=== PATIENT | female | born 1985 | race Caucasian/White ===

== ENCOUNTER 2022-09-09 12:59 | Inpatient (IN) ==
[2022-09-09 13:56] LABS: Appearance Urine Clear (Clear); Bacteria Urine Automated 1+ (Negative); Bilirubin Urine Negative (Negative); Blood Urine Negative (Negative); Color Urine Yellow; Epithelial Cell Urine Auto >30 /lpf (0-5); Glucose Urine UA Negative (Negative); Ketones Urine Trace (Negative); Leukocyte Esterase Urine Trace (Negative); Nitrite Urine Negative (Negative); Protein Urine Negative (Negative); Specific Gravity Urine 1.017 (1.000-1.030); Urobilinogen Urine Negative (Negative); pH Urine 6.5 (4.5-7.5)
[2022-09-09 14:21] LABS: Amphetamines+Metham, Urine Neg (Neg); Barbiturates, Urine Neg (Neg); Benzodiazepine, Urine Neg (Neg); Cocaine, Urine Neg (Neg); MDMA (Ecstacy), Urine Neg (Neg); Methadone, Urine Neg (Neg); Opiate, Urine Neg (Neg); Phencyclidine, Urine Neg (Neg)
[2022-09-09 14:40] LABS: Basophils # (auto) 0.05 K/uL (0-0.2); Basophils % (auto) 0.6 %; Eosinophils # (auto) 0.05 K/uL (0-0.50); Eosinophils % (auto) 0.6 %; Hematocrit (blood only) 41.4 % (34.1-44.9); Hemoglobin 14.5 g/dl (12.0-16.0); Immature Granulocytes # (auto) 0.02 K/uL (0.00-0.02); Immature Granulocytes % (auto) 0.2 %; Lymphocytes % (auto) 27.3 %; Mean Corpuscular Hemoglobin 30.1 pg (25.0-34.0); Mean Corpuscular Volume 85.9 fL (80.0-100.0); Mean Platelet Volume 10.6 fL (9.4-12.3); Monocytes # (auto) 0.55 K/uL (0.24-0.82); Monocytes % (auto) 6.5 %; Neutrophils # (auto) 5.44 K/uL (1.4-6.5); Neutrophils % (auto) 64.8 %; Platelet Count 347 K/uL (130-400); RDW Standard Deviation 37.6 fL (36.4-46.3); Red Blood Count 4.82 M/uL (3.93-5.22); White Blood Count 8.41 K/ul (4.8-10.8)
[2022-09-09 15:00] LABS: Alanine Aminotransferase 12 U/L (7-52); Albumin Globulin Ratio 1.8 (0.9-2); Albumin Level 4.6 gm/dl (3.4-5.0); Alkaline Phosphatase 97 U/L (34-104); Anion Gap 9 (3-11); Aspartate Aminotransferase 14 U/L (13-39); Bilirubin,Total 0.4 mg/dl (0.2-1.0); Blood Urea Nitrogen 9 mg/dl (6-23); Calcium 9.2 mg/dl (8.5-10.1); Carbon Dioxide 24 mmol/L (21-32); Chloride 105 mmol/L (98-107); Est GFR (African American) 131.6 ml/min; Est GFR (Non-African American) 113.6 ml/min; Globulin 2.5 gm/dl (2.5-4.0); Glucose 95 mg/dl (70-99(Fasting)); Potassium 3.9 mmol/L (3.5-5.1); Sodium 138 mmol/L (136-145); Total Protein 7.1 gm/dl (6.0-8.3)
[2022-09-09 15:01] LABS: Acetaminophen < 3 ug/ml (10-30); Salicylate < 3.0 mg/dl (3.0-30)
[2022-09-09] MEDS ORDERED: ALUMINUM/MAGNESIUM SUSP 30 ML UDC PO PRN (18:22)
[2022-09-09] MEDS ORDERED: MAGNESIUM HYDROXIDE SUSP 30 ML UDC PO PRN (18:22)
[2022-09-09] MEDS ORDERED: SODIUM CHLORIDE 0.65% NA SOLN 45 ML (OCEAN) PRN (18:22)
[2022-09-09] MEDS ORDERED: BISMUTH SUBSALICYLATE LIQD 236 ML PO PRN (18:22)
--- NOTE | 2022-09-09 18:38 | Emergency Department Note ---
Impression & Plan Mood disorder ED Provider Note CHIEF COMPLAINT: Mental health evaluation HISTORY OF PRESENT ILLNESS: This 36-year-old female patient presents to the emergency department with complaints of racing thoughts, difficulty sleeping and intermittent suicidal ideation. The patient is currently residing in a homeless [facility] and states she does have a past history of drug abuse. She has been clean recently but has relapsed on several occasions. He does have an appointment with [facility] coming up but is concerned about isabela. Patient states she has been off of her antidepressants, but she believes this triggers her suicidal ideation for which she was seen here yesterday. She is afraid to restart her antidepressants because she believes this triggers her isabela. Says her seventh visit to the emergency department this month and she believes that she needs help currently. REVIEW OF SYSTEMS: A review of systems was performed with positives and pertinent negatives listed in the history of present illness. 10 systems were reviewed and are otherwise negative. ALLERGIES: see below MEDICATIONS: see below PMH: see below SOCIAL HISTORY: see below DDx: Mood disorder, infection, hypoglycemia, electrolyte abnormalities, cardiac sources, intracerebral event, toxicologic, trauma, neurologic, as well as other pathologies. PHYSICAL EXAM: Vital signs reviewed. General: Well-appearing 36 yo female, in no significant distress. HEENT: No scleral icterus, PERRLA, neck supple. Atraumatic. Cardiovascular: Regular rate and rhythm, no extra sounds. Pulmonary: Clear to auscultation bilaterally, normal work of breathing. Abdomen: Soft, nontender, nondistended, positive bowel sounds. Musculoskeletal: Atraumatic, no peripheral edema. Neurologic: Patient awake alert and oriented x 3 Psych: Negative SI, negative HI Skin: Warm, dry, no rash EMERGENCY DEPARTMENT COURSE/MDM: This patient was evaluated and appeared to be in no significant distress. He was medically cleared and evaluated by the psychiatric wrapper caser. She was referred to [facility] for inpatient psychiatric care due to her worsening manic episodes and periodic suicidal ideation. She is requesting inpatient treatment on a voluntary basis. She has been accepted to our facility. DISPOSITION: Admission Past Med/Surg History Medical History Abnormal Pap smear of cervix Anxiety Bipolar disorder No pertinent family history PTSD (post-traumatic stress disorder) Surgical History H/O cervical biopsy H/O wisdom tooth extraction History of section No pertinent past surgical history Family History Mother Breast cancer Denies family history of Ovarian cancer Prostate cancer Myocardial infarction Colorectal cancer Social History Smoking Status: Current every day smoker Tobacco Type: Cigarettes Second Hand Exposure: No; Hx Alcohol Use: No Hx Substance Use: No Preferred Language: Luxembourgish Visual Impairment: No Limitations Hearing Ability: Normal marital status: Single Current Living Situation: Homeless Current Living Situation Comment: Currently living in [facility]ci current occupational status: disabled How many Children do You have: 2 Feels Safe at Home: Yes Childhood Exposure to Second-Hand Smoke: No Diet Comment: Organic Diet Dental Care, Regularly: No Physical Activity Frequency: 3-4 Times per Week Seatbelt Use: always Sunscreen Use: Yes Gender Identity: Female Allergies Allergies Allergy/AdvReac Type Severity Reaction Status Date / Time risperidone Allergy Severe FULL BODY Verified 08/01/22 11:04 "TIC" Home Meds Home Medications Medication Instructions Recorded Confirmed oxcarbazepine 150 mg tablet 150 mg PO BID 09/08/22 09/08/22 propranolol 20 mg tablet 20 mg PO BID 09/08/22 09/08/22 Results & Data (ED) Vital Signs Vital Signs - 24 hr 09/09/22 13:14 Temperature 36.5 C Temperature Source Temporal Artery Scan Pulse Rate 106 H Respiratory Rate 16 Respiratory Effort / Characteristics Non-Labored Respiratory Depth Normal Blood Pressure 137/96 Blood Pressure Mean 109 Pulse Oximetry 93 Oxygen Delivery Method Room Air Sepsis Recent Fever Within 48 Hours No Sepsis New/Unexplained Change in Mental Status No Sepsis Action Taken by Nursing No Action Required Home Medications Current Medication List: was personally reviewed by me Laboratory Data Attestation: I reviewed the patient's lab results. Result diagrams: 09/09/22 14:15 09/09/22 14:15 Lab Results 09/09/22 09/09/22 09/09/22 Range/Units 13:42 13:42 13:42 WBC (4.8-10.8) K/ul RBC (3.93-5.22) M/uL Hgb (12.0-16.0) g/dl Hct (34.1-44.9) % MCV (80.0-100.0) fL MCH (25.0-34.0) pg MCHC (32.0-36.0) g/dL RDW Std Deviation (36.4-46.3) fL RDW Coeff of Yuniel (11.5-14.5) % Plt Count (130-400) K/uL MPV (9.4-12.3) fL Immature Gran % (Auto) % Neut % (Auto) % Lymph % (Auto) % [place] % (Auto) % Eos % (Auto) % Baso % (Auto) % Neut # (Auto) (1.4-6.5) K/uL Lymph # (Auto) (1.2-3.4) K/uL [place] # (Auto) (0.24-0.82) K/uL Eos # (Auto) (0-0.50) K/uL Baso # (Auto) (0-0.2) K/uL Immature Gran # (Auto) (0.00-0.02) K/uL Sodium (136-145) mmol/L Potassium (3.5-5.1) mmol/L Chloride (98-107) mmol/L Carbon Dioxide (21-32) mmol/L Anion Gap (3-11) BUN (6-23) mg/dl Creatinine (0.6-1.2) mg/dl Est Cr Clr Drug Dosing Est GFR ( Amer) ml/min Est GFR (Non-Af Amer) ml/min BUN/Creatinine Ratio (10-20) Glucose (70-99(Fasting)) mg/dl Calcium (8.5-10.1) mg/dl Total Bilirubin (0.2-1.0) mg/dl AST (13-39) U/L ALT (7-52) U/L Alkaline Phosphatase (34-104) U/L Total Protein (6.0-8.3) gm/dl Albumin (3.4-5.0) gm/dl Globulin (2.5-4.0) gm/dl Albumin/Globulin Ratio (0.9-2) TSH (0.300-4.500) uIu/ml Urine Color Yellow Urine Appearance Clear (Clear) Urine pH 6.5 (4.5-7.5) Ur Specific [place] 1.017 (1.000-1.030) Urine Protein Negative (Negative) Urine Glucose (UA) Negative (Negative) Urine Ketones Trace H (Negative) Urine Blood Negative (Negative) Urine Nitrite Negative (Negative) Urine Bilirubin Negative (Negative) Urine Urobilinogen Negative (Negative) Ur Leukocyte Esterase Trace H (Negative) Urine WBC (Auto) 1-5 (0-5) /hpf Urine RBC (Auto) 5-10 H (0-4) /hpf U Hyaline Cast (Auto) 1-5 (0-5) /lpf U Epithel Cells (Auto) >30 H (0-5) /lpf Urine Bacteria (Auto) 1+ H (Negative) POC Ur Test NEG (NEG) Salicylates (3.0-30) mg/dl Urine Opiates Screen Neg (Neg) Ur Methadone, Qual Neg (Neg) Acetaminophen (10-30) ug/ml Urine Barbiturates Neg (Neg) Ur Phencyclidine (PCP) Neg (Neg) U Amphetamin/Meth Scrn Neg (Neg) MDMA (Ecstasy) Screen Neg (Neg) U Benzodiazepines Scrn Neg (Neg) Ur Cocaine Metabolite Neg (Neg) U Marijuana (THC) Screen Pos H (Neg) Ethyl Alcohol mg/dL (<10.0) mg/dl SARS-CoV-2, RNA, NAAT (NEGATIVE) 09/09/22 09/09/22 09/09/22 Range/Units 14:15 14:15 14:15 WBC 8.41 (4.8-10.8) K/ul RBC 4.82 (3.93-5.22) M/uL Hgb 14.5 (12.0-16.0) g/dl Hct 41.4 (34.1-44.9) % MCV 85.9 (80.0-100.0) fL MCH 30.1 (25.0-34.0) pg MCHC 35.0 (32.0-36.0) g/dL RDW Std Deviation 37.6 (36.4-46.3) fL RDW Coeff of Yuniel 12.0 (11.5-14.5) % Plt Count 347 (130-400) K/uL MPV 10.6 (9.4-12.3) fL Immature Gran % (Auto) 0.2 % Neut % (Auto) 64.8 % Lymph % (Auto) 27.3 % [place] % (Auto) 6.5 % Eos % (Auto) 0.6 % Baso % (Auto) 0.6 % Neut # (Auto) 5.44 (1.4-6.5) K/uL Lymph # (Auto) 2.30 (1.2-3.4) K/uL [place] # (Auto) 0.55 (0.24-0.82) K/uL Eos # (Auto) 0.05 (0-0.50) K/uL Baso # (Auto) 0.05 (0-0.2) K/uL Immature Gran # (Auto) 0.02 (0.00-0.02) K/uL Sodium 138 (136-145) mmol/L Potassium 3.9 (3.5-5.1) mmol/L Chloride 105 (98-107) mmol/L Carbon Dioxide 24 (21-32) mmol/L Anion Gap 9 (3-11) BUN 9 (6-23) mg/dl Creatinine 0.69 (0.6-1.2) mg/dl Est Cr Clr Drug Dosing Not Reportable Est GFR ( Amer) 131.6 ml/min Est GFR (Non-Af Amer) 113.6 ml/min BUN/Creatinine Ratio 13.0 (10-20) Glucose 95 (70-99(Fasting)) mg/dl Calcium 9.2 (8.5-10.1) mg/dl Total Bilirubin 0.4 (0.2-1.0) mg/dl AST 14 (13-39) U/L ALT 12 (7-52) U/L Alkaline Phosphatase 97 (34-104) U/L Total Protein 7.1 (6.0-8.3) gm/dl Albumin 4.6 (3.4-5.0) gm/dl Globulin 2.5 (2.5-4.0) gm/dl Albumin/Globulin Ratio 1.8 (0.9-2) TSH 0.808 (0.300-4.500) uIu/ml Urine Color Urine Appearance (Clear) Urine pH (4.5-7.5) Ur Specific [place] (1.000-1.030) Urine Protein (Negative) Urine Glucose (UA) (Negative) Urine Ketones (Negative) Urine Blood (Negative) Urine Nitrite (Negative) Urine Bilirubin (Negative) Urine Urobilinogen (Negative) Ur Leukocyte Esterase (Negative) Urine WBC (Auto) (0-5) /hpf Urine RBC (Auto) (0-4) /hpf U Hyaline Cast (Auto) (0-5) /lpf U Epithel Cells (Auto) (0-5) /lpf Urine Bacteria (Auto) (Negative) POC Ur Test (NEG) Salicylates (3.0-30) mg/dl Urine Opiates Screen (Neg) Ur Methadone, Qual (Neg) Acetaminophen (10-30) ug/ml Urine Barbiturates (Neg) Ur Phencyclidine (PCP) (Neg) U Amphetamin/Meth Scrn (Neg) MDMA (Ecstasy) Screen (Neg) U Benzodiazepines Scrn (Neg) Ur Cocaine Metabolite (Neg) U Marijuana (THC) Screen (Neg) Ethyl Alcohol mg/dL (<10.0) mg/dl SARS-CoV-2, RNA, NAAT (NEGATIVE) 09/09/22 09/09/22 09/09/22 Range/Units 14:15 14:15 14:15 WBC (4.8-10.8) K/ul RBC (3.93-5.22) M/uL Hgb (12.0-16.0) g/dl Hct (34.1-44.9) % MCV (80.0-100.0) fL MCH (25.0-34.0) pg MCHC (32.0-36.0) g/dL RDW Std Deviation (36.4-46.3) fL RDW Coeff of Yuniel (11.5-14.5) % Plt Count (130-400) K/uL MPV (9.4-12.3) fL Immature Gran % (Auto) % Neut % (Auto) % Lymph % (Auto) % [place] % (Auto) % Eos % (Auto) % Baso % (Auto) % Neut # (Auto) (1.4-6.5) K/uL Lymph # (Auto) (1.2-3.4) K/uL [place] # (Auto) (0.24-0.82) K/uL Eos # (Auto) (0-0.50) K/uL Baso # (Auto) (0-0.2) K/uL Immature Gran # (Auto) (0.00-0.02) K/uL Sodium (136-145) mmol/L Potassium (3.5-5.1) mmol/L Chloride (98-107) mmol/L Carbon Dioxide (21-32) mmol/L Anion Gap (3-11) BUN (6-23) mg/dl Creatinine (0.6-1.2) mg/dl Est Cr Clr Drug Dosing Est GFR ( Amer) ml/min Est GFR (Non-Af Amer) ml/min BUN/Creatinine Ratio (10-20) Glucose (70-99(Fasting)) mg/dl Calcium (8.5-10.1) mg/dl Total Bilirubin (0.2-1.0) mg/dl AST (13-39) U/L ALT (7-52) U/L Alkaline Phosphatase (34-104) U/L Total Protein (6.0-8.3) gm/dl Albumin (3.4-5.0) gm/dl Globulin (2.5-4.0) gm/dl Albumin/Globulin Ratio (0.9-2) TSH (0.300-4.500) uIu/ml Urine Color Urine Appearance (Clear) Urine pH (4.5-7.5) Ur Specific [place] (1.000-1.030) Urine Protein (Negative) Urine Glucose (UA) (Negative) Urine Ketones (Negative) Urine Blood (Negative) Urine Nitrite (Negative) Urine Bilirubin (Negative) Urine Urobilinogen (Negative) Ur Leukocyte Esterase (Negative) Urine WBC (Auto) (0-5) /hpf Urine RBC (Auto) (0-4) /hpf U Hyaline Cast (Auto) (0-5) /lpf U Epithel Cells (Auto) (0-5) /lpf Urine Bacteria (Auto) (Negative) POC Ur Test (NEG) Salicylates < 3.0 L (3.0-30) mg/dl Urine Opiates Screen (Neg) Ur Methadone, Qual (Neg) Acetaminophen < 3 L (10-30) ug/ml Urine Barbiturates (Neg) Ur Phencyclidine (PCP) (Neg) U Amphetamin/Meth Scrn (Neg) MDMA (Ecstasy) Screen (Neg) U Benzodiazepines Scrn (Neg) Ur Cocaine Metabolite (Neg) U Marijuana (THC) Screen (Neg) Ethyl Alcohol mg/dL < 10.0 (<10.0) mg/dl SARS-CoV-2, RNA, NAAT NEGATIVE (NEGATIVE) Discharge Plan Visit Data Chief Complaint: Mental Health Evaluation Stated Complaint: MENTAL HEALTH EVAL ED Provider: Danay Hernandez Discharge Problem: Mood disorder Patient Disposition: Admitted As Inpatient Discharge Instructions Interventions: ED Discharge Assessment Last Done: 09/09/22 19:45
[2022-09-09] MEDS ORDERED: OLANZAPINE 2.5 MG TAB PO PRN (20:48)
[2022-09-09] MEDS ORDERED: OLANZapine 5 MG TABLET PO SCH (22:00)
[2022-09-10] MEDS: ACETAMINOPHEN 325 MG TAB PO PRN (08:18)
[2022-09-10] MEDS: NICOTINE 21 MG/24 HR TDSY TD SCH (11:42)
--- NOTE | 2022-09-10 12:24 | History & Physical ---
Date of Service September 10, 2022 Impression / Recommendations Impression 36 yo woman with a history of BPAD, anxiety and substance use who presented with psychosis following recent discharge from the [facility] and stopping risperidone due to side effects of rash. Diagnostically consistent with unspecified psychosis with broad differential including mixed vs manic episode of BPAD vs schizoaffective disorder vs substance-induced from cannabis vs bipolar depression with psychotic features. The patient is deemed unstable and requires psychiatric hospitalization for diagnostic clarification, safety and stabilization, medication management and development of further coping skills. MNPR due hypersexual behaviors, disinhibited and labile Discussed medication treatment options in detail including mood stabilizers, antipsychotics. Discussed risks, benefits and alternatives. Patient would like to start and consented to olanzapine for mood stabilization and psychosis and consents to continuing Trileptal for mood stabilization and Propranolol for anxiety. Reviewed side effects including but not limited to: movement (TD, NMS), cardiac (QTc prolongation), and metabolic (stroke, insulin resistance) and necessity for fasting lipid and glucose labwork and AIMS done with score of 0 for olanzapine. Also reviewed for Trileptal and propranolol including but not limited to: Meyer-Shivam reaction and hyponatremia with Trileptal and syncope and low BP with propranolol. (1) Unspecified psychosis not due to a substance or known physiological condition: (2) Isabela: (3) Cannabis use disorder, moderate, dependence: (4) Bipolar disorder: (5) PTSD (post-traumatic stress disorder): (6) Generalized anxiety disorder: Plan 09/10/2022: The patient was admitted to the [facility] ([facility] mental health unit) on q15 min checks (behavioral with suicide precautions) for safety. The patient will participate in group, recreational, and milieu therapies and will be offered additional individual and family sessions as clinically appropriate. -Continue tripleptal (will verify dose) and propranolol 20mg BID -Start olanzapine 5mg BID -Fasting lipid panel and glucose in the morning Inventory Assets Strengths: resilient, has housing, has outpatient therapy scheduled for next month Needs: medication management, safety and stabilization, increased coping skills, diagnostic clarification Suicide Risk Level Suicide Risk Level: Moderate (q15 min suicide checks) (endorses depression and SI with psychosis and AH but able to safety contract, feels safe in the hospital and agrees to let nursing know if she develops SI with plan or feels unable to remain safe ) Risk Factors Assessment : Yes Do You Have Access To A Gun?: No Mental Health Diagnoses: Yes Substance Use Disorders: Yes Previous Attempt: Yes Family History of Suicide: No Previous Psychiatric Hospitalization: Yes Protective Factors Assessment Responsible for Young Children: No Employed: No Stable Relationships: No Supportive Family: No Psychiatric History Identifying Data DEB PAULA is a 36-year-old F who is currently lives at the [facility] in [place], has a history of depression, BPAD, PTSD, anxiety with panic attacks and substance use, and was admitted on 09/09/22 18:22 on a 201 voluntary commitment for mood changes, SI and confusion. Chief Complaint "I don't know if I'm getting manic, my thoughts are racing" History of Present Illness Deb presents for psychiatric admission for depression with SI and racing thoughts concerning for manic episode. She is stressed that her may be using substances and "maybe gave my kids drugs" and he still has custody of their children but she states she has no idea where they live except that they live in [place]. She notes "I have no clue what's going on but my ex used to fake documents in the ". She is feeling more depressed "like in a bottomless pit" and feels more self-guilt about "what has happened to my kids". She describes feeling a mix of depression noting "it was a torturing feeling when I was suicidal depressed but I know I can't take SSRIs and I was just crying non-stop in the middle of the homeless detention" but also isabela noting "my mind is racing it feels like I'm getting manic". She's been waking up at 4:30am but can't speak to how many hours she gets a night. Very fixated at times on listening for internal stimuli. Likes listening to music and goes to AA meetings online. She had been using alcohol and marijuana, states she only drank once before coming to the ED due to feeling "stressed out". Likes that marijuana helps with PTSD. She identifies a lot of past trauma including from her previous partner. She speaks rapidly about the topics we discuss which it makes it hard to follow her train of thought at times. Fixated at times on topic of masturbation while in the ED and on admission to [facility]. She has been taking Trileptal and Propranolol since leaving the [facility]. Reports having an allergic reaction to risperidone with full body itching. Past Psychiatric History Previous Psych History: hx post- depression Current Psychiatric Diagnosis: Unspecified mood d/o Outpatient Services: [facility] appointment in September Previous Psych Admissions: multiple-most recently at the [facility] in August 2022 (08/18/2022-unknown) "a few days ago maybe" but she cannot recall what she being treated for; [facility] July Do You Have Access To A Gun?: No History of Previous Suicide Attempt: Yes Describe Attempts in the Past: 3x-last 6 years ago via overdose of acetaminophen, hanging and cutting Past Medication Trials: SSRIs-poor response, "it makes me manic", no hx of [place] or Depakote, bad reaction to risperidone, hx xanax-states it makes her come out of her seizures Past Head Trauma/Neuro History History of Concussion/Seizure: Yes (hx of seizures-she notes "it depends on my stress they are stress related") Allergies Allergy/AdvReac Type Severity Reaction Status Date / Time risperidone Allergy Severe FULL BODY Verified 08/01/22 11:04 "TIC" Home Medications Medication Instructions Recorded Confirmed Type oxcarbazepine 150 mg tablet 150 mg PO BID 09/08/22 09/08/22 History propranolol 20 mg tablet 20 mg PO BID 09/08/22 09/08/22 History risperidone 2 mg tablet 2 mg PO BID 09/10/22 09/10/22 History Family History Family History of: Depression (mom and dad), Anxiety (mom and dad) and Doesn't Know (I don't ask them) Alcohol History Hx of Alcohol Use Over the Past 12 Months: Yes (occassional) AUDIT Total Score: 1 states she will take a few sips about once per month due to stress Smoking Use Have You Smoked or Used Tobacco Products in the Last 30 Days: Yes tobacco type: cigarettes Smoking Status: Current every day smoker Smoking packs per day: 1 Substance History Hx of Prescription Med Misuse Over the Past 12 Months: No Hx of Over the Counter Med Misuse Over the Past 12 Months: No Hx of Inhalent Misuse Over the Past 12 Months: No Hx of Organic Substance Use Over the Past 12 Months: Yes (occassional) Hx of Illegal Substances/Street Drug Use Over Past 12 Months: No Problems as a Result of Past Substance Use: Life out of Control Problems as a Result of Past Substance Use Comments: Hx of meth use and unnamed other drugs hx IOP for substance use in the past noting she has used in the past "all kinds" she notes the best explanation is "I was a polydrug user". Personal History Living Arrangements: Homeless Childhood: States she ran away from home at age 19. No current contact with her parents. 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 certification for pharmacy ) Employment Status: Disabled Marital Status: Number Of Children: 2 children-age 10 and 7-doesn't have any contact with them Beliefs That Will Affect Care: None Current Legal Problems: No Hx Legal Problems: Yes (hx arrests for possession of substances ) Hx Traumatic Life Events: Yes Additional Comments: History of being in the Patient History Medical History Abnormal Pap smear of cervix Anxiety Bipolar disorder No pertinent family history PTSD (post-traumatic stress disorder) Surgical History H/O cervical biopsy H/O wisdom tooth extraction History of section No pertinent past surgical history Family History Mother Breast cancer Denies family history of Ovarian cancer Prostate cancer Myocardial infarction Colorectal cancer Social History Smoking Status: Current every day smoker Tobacco Type: Cigarettes Second Hand Exposure: No; Hx Alcohol Use: No Hx Substance Use: No Preferred Language: Greek Communication Ability: Effective Visual Impairment: No Limitations Hearing Ability: Normal 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 Required: No Beliefs That Will Affect Care: None marital status: Single Current Living Situation: Homeless Current Living Situation Comment: Currently living in detention current occupational status: disabled How many Children do You have: 2 Feels Safe at Home: Yes Childhood Exposure to Second-Hand Smoke: No Diet Comment: Organic Diet Dental Care, Regularly: No Physical Activity Frequency: 3-4 Times per Week Seatbelt Use: always Sunscreen Use: Yes Gender Identity: Female Assistive Devices: Glasses Review of Systems Review of Systems: All systems reviewed & are unremarkable except as noted in HPI & below Physical Exam Psychiatric: Orientation: alert and oriented x 3 Apperance: appropriately dressed and + disheveled Eye Contact: + fair eye contact Motor Behavior: no abnormal motor movements Speech: + pressured speech; + abnormal rate/rhythm/volume of speech (fast but able to interrupt also a few moments of significantly latency) Affect: + flat affect Mood: + depressed mood, + anxious mood and + irritable mood Thought Process: + thought blocking, + tangential thought process, + flight of ideas and + perseveration Thought Content: + preoccupation, + paranoid, + delusions, + hopelessness and + guilt Suicidal Thoughts: denies suicidal plan and denies suicidal intent; + reports suicidal thoughts (intermittent) Homicidal Thoughts: denies homicidal thoughts Hallucinations: + auditory hallucinations (denies command AH, hard to make out what they are saying); no visual hallucinations Cognition: language grossly intact; + attention not intact Estimated Intelligence: consistent with education level Insight: + limited insight Judgement: + limited judgement Vital Signs (Past 24 Hours): Last Vital Signs Temp 37 C 09/10/22 06:42 Pulse 83 09/10/22 06:43 Resp 16 09/10/22 06:42 BP 121/82 09/10/22 06:43 Pulse Ox 93 09/09/22 13:14 O2 Del Method 09/09/22 13:14 Exam Statement: A physical exam was performed in the ED by Dr. Montoya for the purposes of medical clearance. I accept that physical as correct and adequate for the purposes of the inpatient physical exam. Results & Data ([facility]) Laboratory Results Laboratory Results - last 24 hr 09/09/22 09/09/22 09/09/22 13:42 13:42 13:42 WBC RBC Hgb Hct MCV MCH MCHC RDW Std Deviation RDW Coeff of Yuniel Plt Count MPV Immature Gran % (Auto) Neut % (Auto) Lymph % (Auto) Randall % (Auto) Eos % (Auto) Baso % (Auto) Neut # (Auto) Lymph # (Auto) Randall # (Auto) Eos # (Auto) Baso # (Auto) Immature Gran # (Auto) Sodium Potassium Chloride Carbon Dioxide Anion Gap BUN Creatinine Est Cr Clr Drug Dosing Est GFR ( Amer) Est GFR (Non-Af Amer) BUN/Creatinine Ratio Glucose Calcium Total Bilirubin AST ALT Alkaline Phosphatase Total Protein Albumin Globulin Albumin/Globulin Ratio TSH Urine Color Yellow Urine Appearance Clear Urine pH 6.5 Ur Specific [place] 1.017 Urine Protein Negative Urine Glucose (UA) Negative Urine Ketones Trace H Urine Blood Negative Urine Nitrite Negative Urine Bilirubin Negative Urine Urobilinogen Negative Ur Leukocyte Esterase Trace H Urine WBC (Auto) 1-5 Urine RBC (Auto) 5-10 H U Hyaline Cast (Auto) 1-5 U Epithel Cells (Auto) >30 H Urine Bacteria (Auto) 1+ H POC Ur Test NEG Salicylates Urine Opiates Screen Neg Ur Methadone, Qual Neg Acetaminophen Urine Barbiturates Neg Ur Phencyclidine (PCP) Neg U Amphetamin/Meth Scrn Neg MDMA (Ecstasy) Screen Neg U Benzodiazepines Scrn Neg Ur Cocaine Metabolite Neg U Marijuana (THC) Screen Pos H U Marijuana THC Carboxy Drug Screen Comment Ethyl Alcohol mg/dL SARS-CoV-2, RNA, NAAT 09/09/22 09/09/22 09/09/22 13:42 14:15 14:15 WBC 8.41 RBC 4.82 Hgb 14.5 Hct 41.4 MCV 85.9 MCH 30.1 MCHC 35.0 RDW Std Deviation 37.6 RDW Coeff of Yuniel 12.0 Plt Count 347 MPV 10.6 Immature Gran % (Auto) 0.2 Neut % (Auto) 64.8 Lymph % (Auto) 27.3 Randall % (Auto) 6.5 Eos % (Auto) 0.6 Baso % (Auto) 0.6 Neut # (Auto) 5.44 Lymph # (Auto) 2.30 Randall # (Auto) 0.55 Eos # (Auto) 0.05 Baso # (Auto) 0.05 Immature Gran # (Auto) 0.02 Sodium 138 Potassium 3.9 Chloride 105 Carbon Dioxide 24 Anion Gap 9 BUN 9 Creatinine 0.69 Est Cr Clr Drug Dosing Not Reportable Est GFR ( Amer) 131.6 Est GFR (Non-Af Amer) 113.6 BUN/Creatinine Ratio 13.0 Glucose 95 Calcium 9.2 Total Bilirubin 0.4 AST 14 ALT 12 Alkaline Phosphatase 97 Total Protein 7.1 Albumin 4.6 Globulin 2.5 Albumin/Globulin Ratio 1.8 TSH Urine Color Urine Appearance Urine pH Ur Specific [place] Urine Protein Urine Glucose (UA) Urine Ketones Urine Blood Urine Nitrite Urine Bilirubin Urine Urobilinogen Ur Leukocyte Esterase Urine WBC (Auto) Urine RBC (Auto) U Hyaline Cast (Auto) U Epithel Cells (Auto) Urine Bacteria (Auto) POC Ur Test Salicylates Urine Opiates Screen Ur Methadone, Qual Acetaminophen Urine Barbiturates Ur Phencyclidine (PCP) U Amphetamin/Meth Scrn MDMA (Ecstasy) Screen U Benzodiazepines Scrn Ur Cocaine Metabolite U Marijuana (THC) Screen U Marijuana THC Carboxy Pending Drug Screen Comment Pending Ethyl Alcohol mg/dL SARS-CoV-2, RNA, NAAT 09/09/22 09/09/22 09/09/22 14:15 14:15 14:15 WBC RBC Hgb Hct MCV MCH MCHC RDW Std Deviation RDW Coeff of Yuniel Plt Count MPV Immature Gran % (Auto) Neut % (Auto) Lymph % (Auto) Randall % (Auto) Eos % (Auto) Baso % (Auto) Neut # (Auto) Lymph # (Auto) Randall # (Auto) Eos # (Auto) Baso # (Auto) Immature Gran # (Auto) Sodium Potassium Chloride Carbon Dioxide Anion Gap BUN Creatinine Est Cr Clr Drug Dosing Est GFR ( Amer) Est GFR (Non-Af Amer) BUN/Creatinine Ratio Glucose Calcium Total Bilirubin AST ALT Alkaline Phosphatase Total Protein Albumin Globulin Albumin/Globulin Ratio TSH 0.808 Urine Color Urine Appearance Urine pH Ur Specific [place] Urine Protein Urine Glucose (UA) Urine Ketones Urine Blood Urine Nitrite Urine Bilirubin Urine Urobilinogen Ur Leukocyte Esterase Urine WBC (Auto) Urine RBC (Auto) U Hyaline Cast (Auto) U Epithel Cells (Auto) Urine Bacteria (Auto) POC Ur Test Salicylates < 3.0 L Urine Opiates Screen Ur Methadone, Qual Acetaminophen < 3 L Urine Barbiturates Ur Phencyclidine (PCP) U Amphetamin/Meth Scrn MDMA (Ecstasy) Screen U Benzodiazepines Scrn Ur Cocaine Metabolite U Marijuana (THC) Screen U Marijuana THC Carboxy Drug Screen Comment Ethyl Alcohol mg/dL < 10.0 SARS-CoV-2, RNA, NAAT 09/09/22 14:15 WBC RBC Hgb Hct MCV MCH MCHC RDW Std Deviation RDW Coeff of Yuniel Plt Count MPV Immature Gran % (Auto) Neut % (Auto) Lymph % (Auto) Randall % (Auto) Eos % (Auto) Baso % (Auto) Neut # (Auto) Lymph # (Auto) Randall # (Auto) Eos # (Auto) Baso # (Auto) Immature Gran # (Auto) Sodium Potassium Chloride Carbon Dioxide Anion Gap BUN Creatinine Est Cr Clr Drug Dosing Est GFR ( Amer) Est GFR (Non-Af Amer) BUN/Creatinine Ratio Glucose Calcium Total Bilirubin AST ALT Alkaline Phosphatase Total Protein Albumin Globulin Albumin/Globulin Ratio TSH Urine Color Urine Appearance Urine pH Ur Specific [place] Urine Protein Urine Glucose (UA) Urine Ketones Urine Blood Urine Nitrite Urine Bilirubin Urine Urobilinogen Ur Leukocyte Esterase Urine WBC (Auto) Urine RBC (Auto) U Hyaline Cast (Auto) U Epithel Cells (Auto) Urine Bacteria (Auto) POC Ur Test Salicylates Urine Opiates Screen Ur Methadone, Qual Acetaminophen Urine Barbiturates Ur Phencyclidine (PCP) U Amphetamin/Meth Scrn MDMA (Ecstasy) Screen U Benzodiazepines Scrn Ur Cocaine Metabolite U Marijuana (THC) Screen U Marijuana THC Carboxy Drug Screen Comment Ethyl Alcohol mg/dL SARS-CoV-2, RNA, NAAT NEGATIVE Current Inpatient Medications Current Inpatient Medications: Current Inpatient Medications Acetaminophen (Acetaminophen 325 Mg Tab) 650 mg PO Q4H PRN PRN Reason: Headache or Minor Fever Stop: 10/09/22 18:21 Last Admin: 09/10/22 08:18 Dose: 650 mg Al Hydrox/Mg Hydrox/Simethicone (Aluminum/Magnesium Susp 30 Ml Udc) 30 ml PO Q4H PRN PRN Reason: GI Upset Stop: 10/09/22 18:21 Bismuth Subsalicylate (Bismuth Subsalicylate Liqd 236 Ml) 15 ml PO PRN PRN PRN Reason: Loose Stool Stop: 10/09/22 18:21 Hydroxyzine HCl (Hydroxyzine Hcl 25 Mg Tab) 50 mg PO HSZ PRN PRN Reason: Insomnia Stop: 10/09/22 18:21 Hydroxyzine HCl (Hydroxyzine Hcl 25 Mg Tab) 25 mg PO Q4H PRN PRN Reason: Anxiety Stop: 10/09/22 18:21 Magnesium Hydroxide (Magnesium Hydroxide Susp 30 Ml Udc) 30 ml PO DAILY PRN PRN Reason: Constipation Stop: 10/09/22 18:21 Miscellaneous (Remove Nicoderm Patch) 1 each N/A DAILY@0859 [facility] Stop: 10/11/22 08:58 Nicotine (Nicotine 21 Mg/24 Hr Tdsy) 21 mg TD QAM [facility] Stop: 10/10/22 09:59 Nicotine Polacrilex (Nicotine Polacrilex 2 Mg Gum) 2 piece MT PRN PRN PRN Reason: cravings Stop: 10/10/22 09:30 Olanzapine (Olanzapine 5 Mg Tablet) 5 mg PO HS WILLIAM Stop: 10/09/22 21:59 Last Admin: 09/09/22 22:28 Dose: 5 mg Olanzapine (Olanzapine 2.5 Mg Tab) 2.5 mg PO BID PRN PRN Reason: Anxiety/Agitation Stop: 10/09/22 20:59 Last Admin: 09/10/22 08:05 Dose: 2.5 mg Sodium Chloride (Sodium Chloride 0.65% Na Soln 45 Ml ([place])) 1 - 2 sprays NA PRN PRN PRN Reason: Nasal Dryness/Congestion Stop: 10/09/22 18:21
[2022-09-10] MEDS: NICOTINE POLACRILEX 2 MG GUM MT PRN ×3 (12:30→19:27)
[2022-09-10] MEDS: PROPRANOLOL HCL 20 MG TAB PO SCH ×2 (13:08→20:49)
[2022-09-10] MEDS: IBUPROFEN 600 MG TAB PO PRN (13:25)
[2022-09-10] MEDS: OLANZAPINE 2.5 MG TAB PO PRN ×2 (15:20→18:53)
[2022-09-10] MEDS: hydrOXYzine HCl 25 MG TAB PO PRN (17:18)
[2022-09-10] MEDS: OXcarbazepine 150 MG TABLET PO SCH (20:49)
[2022-09-10] MEDS: OLANZapine 5 MG TABLET PO SCH (20:49)
[2022-09-11] MEDS: OLANZAPINE 2.5 MG TAB PO PRN ×4 (04:02→18:06)
[2022-09-11] MEDS: OLANZapine 5 MG TABLET PO SCH (07:58)
[2022-09-11 08:09] LABS: Chol HDL Ratio 3.8 (0-5)
[2022-09-11] MEDS: NICOTINE 21 MG/24 HR TDSY TD SCH (08:10)
[2022-09-11] MEDS: OXcarbazepine 150 MG TABLET PO SCH ×2 (08:11→21:32)
[2022-09-11] MEDS: NICOTINE POLACRILEX 2 MG GUM MT PRN ×4 (08:12→17:58)
[2022-09-11] MEDS: PROPRANOLOL HCL 20 MG TAB PO SCH ×2 (08:12→21:33)
[2022-09-11] MEDS: hydrOXYzine HCl 25 MG TAB PO PRN ×2 (10:43→15:56)
--- NOTE | 2022-09-11 11:23 | Psychiatric Progress Note ---
Date of Service September 11, 2022 Impression / Recommendations Impression 36 yo woman with a history of BPAD, anxiety and substance use who presented with psychosis following recent discharge from the [facility] and stopping risperidone due to side effects of rash. Diagnostically consistent with unspecified psychosis with broad differential including mixed vs manic episode of BPAD vs schizoaffective disorder vs substance-induced from cannabis vs bipolar depression with psychotic features. The patient is deemed unstable and requires psychiatric hospitalization for diagnostic clarification, safety and stabilization, medication management and development of further coping skills. MNPR due hypersexual behaviors, disinhibited and labile 09/11/2022: Presents with more prominent signs of acute kanika today. Less thought blocking since starting the olanzapine. Still quite pressured, anxious, restless. Unclear if concerns about her belongings are due to reality-based issues in the past due to living at homeless skilled nursing versus element of paranoia. Tolerating olanzapine well but would benefit from dose titration. Reviewed fasting glucose and lipid panel which was all normal. (1) Unspecified psychosis not due to a substance or known physiological condition: (2) Kanika: (3) Cannabis use disorder, moderate, dependence: (4) Bipolar disorder: (5) PTSD (post-traumatic stress disorder): (6) Generalized anxiety disorder: Plan 09/11/2022: Increase olanzapine to 5mg qAM and 10 mg qhs with 2.5mg QID prn. 09/10/2022: The patient was admitted to the [facility] ([facility] mental health unit) on q15 min checks (behavioral with suicide precautions) for safety. The patient will participate in group, recreational, and milieu therapies and will be offered additional individual and family sessions as clinically appropriate. -Continue tripleptal (will verify dose) and propranolol 20mg BID -Start olanzapine 5mg BID -Fasting lipid panel and glucose in the morning Inventory Assets Strengths: resilient, has housing, has outpatient therapy scheduled for next month Needs: medication management, safety and stabilization, increased coping skills, diagnostic clarification Suicide Risk Level Suicide Risk Level: Moderate (q15 min suicide checks) (endorses depression and SI with psychosis and AH but able to safety contract, feels safe in the hospital and agrees to let nursing know if she develops SI with plan or feels unable to remain safe ) Risk Factors Assessment : Yes Do You Have Access To A Gun?: No Mental Health Diagnoses: Yes Substance Use Disorders: Yes Previous Attempt: Yes Family History of Suicide: No Previous Psychiatric Hospitalization: Yes Protective Factors Assessment Responsible for Young Children: No Employed: No Stable Relationships: No Supportive Family: No Interval History Identifying Information SULY PAULA is a 36-year-old F who is currently lives at the [facility] in [place], has a history of depression, BPAD, PTSD, anxiety with panic attacks and substance use, and was admitted on 09/09/22 18:22 on a 201 voluntary commitment for mood changes, SI and confusion. Chief Complaint "Words keep popping up, disturbing things, I just can't focus, I'm trying not to interrupt people". Review of Systems Sleep Information Total Hours of Sleep: 5 Sleep Comments: Awoke early due to a strange dream. Got Zyprexa for anxiety and listened to music in room. Meal Information Percent Meal Consumed - Breakfast: 100 Percent Meal Consumed - Lunch: 0 Percent Meal Consumed - Dinner: 100 Subjective Subjective Patient was seen & assessed and interval progress reviewed with treatment team nursing and social work. Slept about 5 hours overnight but presents with ongoing racing thoughts, pressured, easily overwhelmed and difficult to follow her train of thought. Can describe she is worried about anxiety leading to kanika leading to post depression and doesn't want to be depressed. Likes the olanzapine and finds it very helpful but perseverates on concerns for ongoing rapid thoughts. Trying to use meditation and exercise to help. Also expresses her stuff may get stolen at [facility] but notes she has most her belongings her at the hospital. Provided reassurance that her belongings that are here in the hospital are safe and that no one will try to take them. Reviewed labwork with her. Physical Exam Psychiatric Orientation: alert and oriented x 3 Apperance: appropriately dressed and + disheveled Eye Contact: + fair eye contact Motor Behavior: no abnormal motor movements Speech: + pressured speech; + abnormal rate/rhythm/volume of speech (fast but able to interrupt ) Affect: + anxious affect Mood: + depressed mood, + anxious mood and + irritable mood Thought Process: + tangential thought process, + flight of ideas and + perseveration Thought Content: + preoccupation, + paranoid and + delusions Suicidal Thoughts: denies suicidal plan and denies suicidal intent; + reports suicidal thoughts (intermittent) Homicidal Thoughts: denies homicidal thoughts Hallucinations: + auditory hallucinations (denies command AH, hard to make out what they are saying); no visual hallucinations Cognition: language grossly intact; + attention not intact Estimated Intelligence: consistent with education level Insight: + limited insight Judgement: + limited judgement Vital Signs (Past 24 Hours) Last Vital Signs Temp 36.8 C 09/11/22 06:39 Pulse 76 09/11/22 06:40 Resp 16 09/11/22 06:39 BP 136/82 09/11/22 06:40 Pulse Ox 99 09/10/22 20:44 O2 Del Method 09/10/22 20:44 Results & Data ([facility]) Laboratory Results Laboratory Results - last 24 hr 09/11/22 07:28 Fasting Glucose 98 Triglycerides 88 Cholesterol 142 LDL Cholesterol, Calc 87 VLDL Cholesterol, Calc 18 HDL Cholesterol 37 Cholesterol/HDL Ratio 3.8 Current Inpatient Medications Current Inpatient Medications: Current Inpatient Medications Acetaminophen (Acetaminophen 325 Mg Tab) 650 mg PO Q4H PRN PRN Reason: Headache or Minor Fever Stop: 10/09/22 18:21 Last Admin: 09/10/22 08:18 Dose: 650 mg Al Hydrox/Mg Hydrox/Simethicone (Aluminum/Magnesium Susp 30 Ml Udc) 30 ml PO Q4H PRN PRN Reason: GI Upset Stop: 10/09/22 18:21 Bismuth Subsalicylate (Bismuth Subsalicylate Liqd 236 Ml) 15 ml PO PRN PRN PRN Reason: Loose Stool Stop: 10/09/22 18:21 Hydroxyzine HCl (Hydroxyzine Hcl 25 Mg Tab) 50 mg PO HSZ PRN PRN Reason: Insomnia Stop: 10/09/22 18:21 Hydroxyzine HCl (Hydroxyzine Hcl 25 Mg Tab) 25 mg PO Q4H PRN PRN Reason: Anxiety Stop: 10/09/22 18:21 Last Admin: 09/11/22 10:43 Dose: 25 mg Ibuprofen (Ibuprofen 600 Mg Tab) 600 mg PO Q6H PRN PRN Reason: migraine headache Stop: 10/10/22 13:04 Last Admin: 09/10/22 13:25 Dose: 600 mg Magnesium Hydroxide (Magnesium Hydroxide Susp 30 Ml Udc) 30 ml PO DAILY PRN PRN Reason: Constipation Stop: 10/09/22 18:21 Miscellaneous (Remove Nicoderm Patch) 1 each N/A DAILY@0859 [facility] Stop: 10/11/22 08:58 Last Admin: 09/11/22 08:10 Dose: 1 each Nicotine (Nicotine 21 Mg/24 Hr Tdsy) 21 mg TD QAM [facility] Stop: 10/10/22 09:59 Last Admin: 09/11/22 08:10 Dose: 21 mg Nicotine Polacrilex (Nicotine Polacrilex 2 Mg Gum) 2 piece MT PRN PRN PRN Reason: cravings Stop: 10/10/22 09:30 Last Admin: 09/11/22 08:12 Dose: 2 piece Olanzapine (Olanzapine 5 Mg Tablet) 5 mg PO BID [facility] Stop: 10/10/22 20:59 Last Admin: 09/11/22 07:58 Dose: 5 mg Olanzapine (Olanzapine 2.5 Mg Tab) 2.5 mg PO QID PRN PRN Reason: Anxiety/Agitation Stop: 10/09/22 20:47 Last Admin: 09/11/22 09:46 Dose: 2.5 mg Oxcarbazepine (Oxcarbazepine 150 Mg Tablet) 450 mg PO BID [facility] Stop: 10/10/22 20:59 Last Admin: 09/11/22 08:11 Dose: 450 mg Propranolol HCl (Propranolol Hcl 20 Mg Tab) 20 mg PO BID [facility] Stop: 10/10/22 12:59 Last Admin: 09/11/22 08:12 Dose: 20 mg Sodium Chloride (Sodium Chloride 0.65% Na Soln 45 Ml ([place])) 1 - 2 sprays NA PRN PRN PRN Reason: Nasal Dryness/Congestion Stop: 10/09/22 18:21 Zinc Acetate/Diphenhydramine (Diphenhydramine 2%/Zinc 0.1% Cream 28gm Tube) 1 appln EXT BID PRN PRN Reason: rash on upper leg Stop: 10/10/22 12:17 Mental Health & Subst Abuse Tx Therapist Name of Therapist: Kendra Flores
[2022-09-11] MEDS ORDERED: OLANZapine 10 MG TAB PO SCH (22:00)
[2022-09-12 05:43] LABS: Marijuana Quant, GCMS Urine 28 ng/mL (<5)
[2022-09-12] MEDS: hydrOXYzine HCl 25 MG TAB PO PRN ×2 (07:41→21:05)
[2022-09-12] MEDS: NICOTINE POLACRILEX 2 MG GUM MT PRN ×3 (07:41→14:19)
[2022-09-12] MEDS: OXcarbazepine 150 MG TABLET PO SCH ×2 (07:57→21:01)
[2022-09-12] MEDS: OLANZapine 5 MG TABLET PO SCH ×2 (07:57→21:04)
[2022-09-12] MEDS: NICOTINE 21 MG/24 HR TDSY TD SCH (07:57)
[2022-09-12] MEDS: PROPRANOLOL HCL 20 MG TAB PO SCH ×2 (07:58→21:01)
[2022-09-12] MEDS: LITHIUM CARBONATE SLOW REL 300 MG TAB PO SCH ×2 (11:19→21:01)
[2022-09-12] MEDS: OLANZAPINE 2.5 MG TAB PO PRN (12:17)
--- NOTE | 2022-09-12 13:00 | Psychiatric Progress Note ---
Date of Service September 12, 2022 Impression / Recommendations Impression 36 yo woman with a history of BPAD, anxiety and substance use who presented with psychosis following recent discharge from the [facility] and stopping risperidone due to side effects of rash. Diagnostically consistent with unspecified psychosis with broad differential including mixed vs manic episode of BPAD vs schizoaffective disorder vs substance-induced from cannabis vs bipolar depression with psychotic features. The patient is deemed unstable and requires psychiatric hospitalization for diagnostic clarification, safety and stabilization, medication management and development of further coping skills. MNPR due hypersexual behaviors, disinhibited and labile on admission 09/12/2022: as per Dr. Monreal above. Patient in need of additional mood stabilization, frequent prn use for FOI despite Zyprexa. Sleep is still disrupted. Requesting retrial of lithium. reviewed renal function. Consider EKG but baseline not required as <40 yo. (1) Unspecified psychosis not due to a substance or known physiological condition: (2) Kanika: (3) Cannabis use disorder, moderate, dependence: (4) Bipolar disorder: (5) PTSD (post-traumatic stress disorder): (6) Generalized anxiety disorder: Plan : Zyprexa to 15 mg hs. 2.5 mg prn is not effective of Zyprexa nor is Hydroxyzine 25 mg so will offer Haldol 5 mg q6 prn instead. Monitor EPS, Cogentin if symptomatic. risks/benefits/alternatives reviewed re: [place], will start 300 mg BId today with plan to increase to 900 mg daily starting tomorrow if well tolerated. 09/11/2022: Increase olanzapine to 5mg qAM and 10 mg qhs with 2.5mg QID prn. 09/10/2022: The patient was admitted to the [facility] ([facility] mental health unit) on q15 min checks (behavioral with suicide precautions) for safety. The patient will participate in group, recreational, and milieu therapies and will be offered additional individual and family sessions as clinically appropriate. -Continue tripleptal (will verify dose) and propranolol 20mg BID -Start olanzapine 5mg BID -Fasting lipid panel and glucose in the morning Inventory Assets Strengths: resilient, has housing, has outpatient therapy scheduled for next month Needs: medication management, safety and stabilization, increased coping skills, diagnostic clarification Suicide Risk Level Suicide Risk Level: Moderate (q15 min suicide checks) Risk Factors Assessment : Yes Do You Have Access To A Gun?: No Mental Health Diagnoses: Yes Substance Use Disorders: Yes Previous Attempt: Yes Family History of Suicide: No Previous Psychiatric Hospitalization: Yes Protective Factors Assessment Responsible for Young Children: No Employed: No Stable Relationships: No Supportive Family: No Interval History Identifying Information SULY PAULA is a 36-year-old F who is currently lives at the [facility] in [place], has a history of depression, BPAD, PTSD, anxiety with panic attacks and substance use, and was admitted on 09/09/22 18:22 on a 201 voluntary commitment for mood changes, SI and confusion. Chief Complaint "I really felt lithium worked well before, it was only stopped as I couldn't get regular appointments and labs." Review of Systems Sleep Information Total Hours of Sleep: 8.25 Meal Information Percent Meal Consumed - Breakfast: 100 Percent Meal Consumed - Lunch: 50 Percent Meal Consumed - Dinner: 100 Subjective Subjective Patient was seen & assessed and interval progress reviewed with treatment team. Has remained disorganized, frequently requesting prns. has been manic and thought blocked. States that her Trileptal is for "maybe pseudoseizures" and she feels that lithium was a good antidepressant. I reviewed selected notes from [facility] records and see 1 rx from January from Dr. Avila with no follow up. Physical Exam Psychiatric Orientation: alert and oriented x 3 Apperance: appropriately dressed and + disheveled Eye Contact: + fair eye contact Motor Behavior: no abnormal motor movements Speech: + abnormal rate/rhythm/volume of speech (fast but able to interrupt ) Affect: + anxious affect Mood: + depressed mood Thought Process: + concrete thought process; no thought blocking Thought Content: + delusions Suicidal Thoughts: denies suicidal thoughts (but unable to safety plan), denies suicidal plan and denies suicidal intent Homicidal Thoughts: denies homicidal thoughts Hallucinations: + auditory hallucinations (less, does not appear to be responding to internal stimuli); no visual hallucinations Cognition: language grossly intact Estimated Intelligence: consistent with education level Insight: + limited insight Judgement: + limited judgement Vital Signs (Past 24 Hours) Last Vital Signs Temp 36.8 C 09/12/22 06:38 Pulse 57 L 09/12/22 06:39 Resp 16 09/12/22 06:38 BP 117/78 09/12/22 06:39 Pulse Ox 99 09/10/22 20:44 O2 Del Method 09/10/22 20:44 Results & Data ([facility]) Laboratory Results Laboratory Results - last 24 hr 09/09/22 13:42 U Marijuana THC Carboxy 28 H Drug Screen Comment SEE NOTE Current Inpatient Medications Current Inpatient Medications: Current Inpatient Medications Acetaminophen (Acetaminophen 325 Mg Tab) 650 mg PO Q4H PRN PRN Reason: Headache or Minor Fever Stop: 10/09/22 18:21 Last Admin: 09/10/22 08:18 Dose: 650 mg Al Hydrox/Mg Hydrox/Simethicone (Aluminum/Magnesium Susp 30 Ml Udc) 30 ml PO Q4H PRN PRN Reason: GI Upset Stop: 10/09/22 18:21 Bismuth Subsalicylate (Bismuth Subsalicylate Liqd 236 Ml) 15 ml PO PRN PRN PRN Reason: Loose Stool Stop: 10/09/22 18:21 Hydroxyzine HCl (Hydroxyzine Hcl 25 Mg Tab) 50 mg PO HSZ PRN PRN Reason: Insomnia Stop: 10/09/22 18:21 Hydroxyzine HCl (Hydroxyzine Hcl 25 Mg Tab) 25 mg PO Q4H PRN PRN Reason: Anxiety Stop: 10/09/22 18:21 Last Admin: 09/12/22 07:41 Dose: 25 mg Ibuprofen (Ibuprofen 600 Mg Tab) 600 mg PO Q6H PRN PRN Reason: migraine headache Stop: 10/10/22 13:04 Last Admin: 09/10/22 13:25 Dose: 600 mg [place] Carbonate ([place] Carbonate Slow Rel 300 Mg Tab) 300 mg PO BID [facility] Stop: 10/12/22 10:44 Last Admin: 09/12/22 11:19 Dose: 300 mg Magnesium Hydroxide (Magnesium Hydroxide Susp 30 Ml Udc) 30 ml PO DAILY PRN PRN Reason: Constipation Stop: 10/09/22 18:21 Miscellaneous (Remove Nicoderm Patch) 1 each N/A DAILY@2100 [facility] Stop: 10/12/22 20:59 Nicotine (Nicotine 21 Mg/24 Hr Tdsy) 21 mg TD QAM [facility] Stop: 10/10/22 09:59 Last Admin: 09/12/22 07:57 Dose: 21 mg Nicotine Polacrilex (Nicotine Polacrilex 2 Mg Gum) 2 piece MT PRN PRN PRN Reason: cravings Stop: 10/10/22 09:30 Last Admin: 09/12/22 10:49 Dose: 2 piece Olanzapine (Olanzapine 2.5 Mg Tab) 2.5 mg PO QID PRN PRN Reason: Anxiety/Agitation Stop: 10/09/22 20:47 Last Admin: 09/12/22 12:17 Dose: 2.5 mg Olanzapine (Olanzapine 5 Mg Tablet) 5 mg PO QAM [facility] Stop: 10/12/22 08:59 Last Admin: 09/12/22 07:57 Dose: 5 mg Olanzapine (Olanzapine 5 Mg Tablet) 15 mg PO HS [facility] Stop: 10/12/22 21:59 Oxcarbazepine (Oxcarbazepine 150 Mg Tablet) 450 mg PO BID [facility] Stop: 10/10/22 20:59 Last Admin: 09/12/22 07:57 Dose: 450 mg Propranolol HCl (Propranolol Hcl 20 Mg Tab) 20 mg PO BID [facility] Stop: 10/10/22 12:59 Last Admin: 09/12/22 07:58 Dose: 20 mg Sodium Chloride (Sodium Chloride 0.65% Na Soln 45 Ml ([place])) 1 - 2 sprays NA PRN PRN PRN Reason: Nasal Dryness/Congestion Stop: 10/09/22 18:21 Zinc Acetate/Diphenhydramine (Diphenhydramine 2%/Zinc 0.1% Cream 28gm Tube) 1 appln EXT BID PRN PRN Reason: rash on upper leg Stop: 10/10/22 12:17 Mental Health & Subst Abuse Tx Therapist Name of Therapist: Kendra Flores
[2022-09-12] MEDS: haloperidoL 5 MG TAB PO PRN (18:31)
[2022-09-13] MEDS: LITHIUM CARBONATE SLOW REL 300 MG TAB PO SCH (08:58)
[2022-09-13] MEDS: NICOTINE 21 MG/24 HR TDSY TD SCH (08:58)
[2022-09-13] MEDS: OLANZapine 5 MG TABLET PO SCH ×2 (08:58→20:50)
[2022-09-13] MEDS: OXcarbazepine 150 MG TABLET PO SCH ×2 (08:59→20:50)
[2022-09-13] MEDS: PROPRANOLOL HCL 20 MG TAB PO SCH ×2 (08:59→20:49)
[2022-09-13] MEDS: NICOTINE POLACRILEX 2 MG GUM MT PRN ×3 (10:26→20:54)
--- NOTE | 2022-09-13 11:42 | Psychiatric Progress Note ---
Date of Service September 13, 2022 Impression / Recommendations Impression 36 yo woman with a history of BPAD, anxiety and substance use who presented with psychosis following recent discharge from the [facility] and stopping risperidone due to side effects of rash. Diagnostically consistent with unspecified psychosis with broad differential including mixed vs manic episode of BPAD vs schizoaffective disorder vs substance-induced from cannabis vs bipolar depression with psychotic features. The patient is deemed unstable and requires psychiatric hospitalization for diagnostic clarification, safety and stabilization, medication management and development of further coping skills. MNPR due hypersexual behaviors, disinhibited and labile on admission 09/13/2022: as per Dr. Monreal above. Patient's anxiety is due to FOI/racing thoughts and I agree with Dr. Monreal that her presentation/severity/course/med response are most consistent with schizoaffective disorder bipolar type. (1) Schizoaffective disorder: (2) Cannabis use disorder, moderate, dependence: (3) PTSD (post-traumatic stress disorder): Plan 09/13/2022: titrate Cuney to previou dose of Eskalith 450 mg BID. 09/12/2022: Zyprexa to 15 mg hs. 2.5 mg prn is not effective of Zyprexa nor is Hydroxyzine 25 mg so will offer Haldol 5 mg q6 prn instead. Monitor EPS, Cogentin if symptomatic. risks/benefits/alternatives reviewed re: [place], will start 300 mg BId today with plan to increase to 900 mg daily starting tomorrow if well tolerated. 09/11/2022: Increase olanzapine to 5mg qAM and 10 mg qhs with 2.5mg QID prn. 09/10/2022: The patient was admitted to the [facility] ([facility] mental health unit) on q15 min checks (behavioral with suicide precautions) for safety. The patient will participate in group, recreational, and milieu therapies and will be offered additional individual and family sessions as clinically appropriate. -Continue tripleptal (will verify dose) and propranolol 20mg BID -Start olanzapine 5mg BID -Fasting lipid panel and glucose in the morning Inventory Assets Strengths: resilient, has housing, has outpatient therapy scheduled for next month Needs: medication management, safety and stabilization, increased coping skills, diagnostic clarification Suicide Risk Level Suicide Risk Level: Moderate (q15 min suicide checks) Risk Factors Assessment : Yes Do You Have Access To A Gun?: No Mental Health Diagnoses: Yes Substance Use Disorders: Yes Previous Attempt: Yes Family History of Suicide: No Previous Psychiatric Hospitalization: Yes Protective Factors Assessment Responsible for Young Children: No Employed: No Stable Relationships: No Supportive Family: No Interval History Identifying Information SULY PAULA is a 36-year-old F who is currently lives at the [facility] in [place], has a history of depression, BPAD, PTSD, anxiety with panic attacks and substance use, and was admitted on 09/09/22 18:22 on a 201 voluntary commitment for mood changes, SI and confusion. Chief Complaint "I worry that I overshare as I'm very [employer] and don't want to stress others". Review of Systems Sleep Information Total Hours of Sleep: 7 Meal Information Percent Meal Consumed - Breakfast: 40 Percent Meal Consumed - Lunch: 100 Percent Meal Consumed - Dinner: 100 Subjective Subjective Patient was seen & assessed and interval progress reviewed with nursing and social work. Increased organization and insight (slightly) in that requested 1-on-1 yesterday afternoon to discuss her thoughts on spirits, seeing demons. She is tangential in interactions. Denies ugarte this am. States she had some N this am but doesn't feel that related to lithium. Received Haldol and Vistaril prn for racing thoughts. Physical Exam Psychiatric Orientation: alert Apperance: appropriately groomed Eye Contact: good eye contact Motor Behavior: steady gait and station (restless) Speech: + pressured speech Affect: + anxious affect Mood: + depressed mood and + anxious mood Thought Process: + tangential thought process Thought Content: + delusions (hyperreligious) Suicidal Thoughts: denies suicidal thoughts Homicidal Thoughts: denies homicidal thoughts Hallucinations: no auditory hallucinations and no visual hallucinations Cognition: language grossly intact; + attention not intact Estimated Intelligence: consistent with education level Insight: + limited insight Judgement: + limited judgement Vital Signs (Past 24 Hours) Last Vital Signs Temp 36.7 C 09/13/22 06:00 Pulse 73 09/13/22 06:44 Resp 16 09/13/22 06:00 BP 111/77 09/13/22 06:44 Pulse Ox 99 09/10/22 20:44 O2 Del Method 09/13/22 06:00 Results & Data ([facility]) Current Inpatient Medications Current Inpatient Medications: Current Inpatient Medications Acetaminophen (Acetaminophen 325 Mg Tab) 650 mg PO Q4H PRN PRN Reason: Headache or Minor Fever Stop: 10/09/22 18:21 Last Admin: 09/10/22 08:18 Dose: 650 mg Al Hydrox/Mg Hydrox/Simethicone (Aluminum/Magnesium Susp 30 Ml Udc) 30 ml PO Q4H PRN PRN Reason: GI Upset Stop: 10/09/22 18:21 Benztropine Mesylate (Benztropine Mesylate 1 Mg Tab) 1 mg PO Q6 PRN PRN Reason: Muscle Spasm Stop: 10/12/22 17:59 Bismuth Subsalicylate (Bismuth Subsalicylate Liqd 236 Ml) 15 ml PO PRN PRN PRN Reason: Loose Stool Stop: 10/09/22 18:21 Haloperidol (Haloperidol 5 Mg Tab) 5 mg PO Q6 PRN PRN Reason: Anxiety/Agitation Stop: 10/12/22 12:59 Last Admin: 09/12/22 18:31 Dose: 5 mg Hydroxyzine HCl (Hydroxyzine Hcl 25 Mg Tab) 50 mg PO HSZ PRN PRN Reason: Insomnia Stop: 10/09/22 18:21 Last Admin: 09/12/22 21:05 Dose: 50 mg Ibuprofen (Ibuprofen 600 Mg Tab) 600 mg PO Q6H PRN PRN Reason: migraine headache Stop: 10/10/22 13:04 Last Admin: 09/10/22 13:25 Dose: 600 mg [place] Carbonate (C[place] Carbonate 450 Mg Tabcr) 450 mg PO BID [facility] Stop: 10/13/22 20:59 Magnesium Hydroxide (Magnesium Hydroxide Susp 30 Ml Udc) 30 ml PO DAILY PRN PRN Reason: Constipation Stop: 10/09/22 18:21 Miscellaneous (Remove Nicoderm Patch) 1 each N/A DAILY@2100 [facility] Stop: 10/12/22 20:59 Last Admin: 09/12/22 21:11 Dose: 1 each Nicotine (Nicotine 21 Mg/24 Hr Tdsy) 21 mg TD QAM [facility] Stop: 10/10/22 09:59 Last Admin: 09/13/22 08:58 Dose: 21 mg Nicotine Polacrilex (Nicotine Polacrilex 2 Mg Gum) 2 piece MT PRN PRN PRN Reason: cravings Stop: 10/10/22 09:30 Last Admin: 09/13/22 10:26 Dose: 2 piece Olanzapine (Olanzapine 5 Mg Tablet) 5 mg PO QAM [facility] Stop: 10/12/22 08:59 Last Admin: 09/13/22 08:58 Dose: 5 mg Olanzapine (Olanzapine 5 Mg Tablet) 15 mg PO HS [facility] Stop: 10/12/22 21:59 Last Admin: 09/12/22 21:04 Dose: 15 mg Oxcarbazepine (Oxcarbazepine 150 Mg Tablet) 450 mg PO BID [facility] Stop: 10/10/22 20:59 Last Admin: 09/13/22 08:59 Dose: 450 mg Propranolol HCl (Propranolol Hcl 20 Mg Tab) 20 mg PO BID [facility] Stop: 10/10/22 12:59 Last Admin: 09/13/22 08:59 Dose: 20 mg Sodium Chloride (Sodium Chloride 0.65% Na Soln 45 Ml ([place])) 1 - 2 sprays NA PRN PRN PRN Reason: Nasal Dryness/Congestion Stop: 10/09/22 18:21 Zinc Acetate/Diphenhydramine (Diphenhydramine 2%/Zinc 0.1% Cream 28gm Tube) 1 appln EXT BID PRN PRN Reason: rash on upper leg Stop: 10/10/22 12:17 Mental Health & Subst Abuse Tx Psychiatrist Name of Psychiatrist: Jeffrey Adams Psychiatrist's Time of Appointment with Psychiatrist: 1:15 pm Psychiatric Appointment Comment: [address], [place], [place] Therapist Name of Therapist: Kendra Brown Therapist's Time of Therapist Appointment: 9:30 AM Therapy Appointment Comment: [address], [place] [address]
[2022-09-13] MEDS: haloperidoL 5 MG TAB PO PRN ×2 (12:54→19:00)
[2022-09-13] MEDS: IBUPROFEN 600 MG TAB PO PRN (14:04)
[2022-09-13] MEDS: ACETAMINOPHEN 325 MG TAB PO PRN (14:04)
[2022-09-13] MEDS ORDERED: LORazepam 1 MG TAB PO STA (19:53)
[2022-09-13] MEDS: LITHIUM CARBONATE 450 MG TABCR PO SCH (20:49)
[2022-09-14] MEDS: NICOTINE 21 MG/24 HR TDSY TD SCH (08:43)
[2022-09-14] MEDS: OLANZapine 5 MG TABLET PO SCH (08:43)
[2022-09-14] MEDS: LITHIUM CARBONATE 450 MG TABCR PO SCH ×2 (08:43→20:42)
[2022-09-14] MEDS: OXcarbazepine 150 MG TABLET PO SCH ×2 (08:44→20:42)
[2022-09-14] MEDS: PROPRANOLOL HCL 20 MG TAB PO SCH ×2 (08:44→20:42)
[2022-09-14] MEDS: NICOTINE POLACRILEX 2 MG GUM MT PRN ×3 (09:00→18:23)
[2022-09-14] MEDS: haloperidoL 5 MG TAB PO PRN ×2 (11:53→18:21)
--- NOTE | 2022-09-14 12:09 | Psychiatric Progress Note ---
Date of Service September 14, 2022 Impression / Recommendations Impression 36 yo woman with a history of BPAD, anxiety and substance use who presented with psychosis following recent discharge from the [facility] and stopping risperidone due to side effects of rash. Diagnostically consistent with unspecified psychosis with broad differential including mixed vs manic episode of BPAD vs schizoaffective disorder vs substance-induced from cannabis vs bipolar depression with psychotic features. The patient is deemed unstable and requires psychiatric hospitalization for diagnostic clarification, safety and stabilization, medication management and development of further coping skills. MNPR due hypersexual behaviors, disinhibited and labile on admission; remains disorganized. 09/14/2022: as per Dr. Monreal above. improving but still disorganized. Plan: shift Zyprexa to hs dosing, sleep gradually improving, will need lithium level prior to discharge (approx. 09/18). (1) Schizoaffective disorder: (2) Cannabis use disorder, moderate, dependence: (3) PTSD (post-traumatic stress disorder): Inventory Assets Strengths: resilient, has housing, has outpatient therapy scheduled for next month Needs: medication management, safety and stabilization, increased coping skills, diagnostic clarification Suicide Risk Level Suicide Risk Level: Moderate (q15 min suicide checks) Risk Factors Assessment : Yes Do You Have Access To A Gun?: No Mental Health Diagnoses: Yes Substance Use Disorders: Yes Previous Attempt: Yes Family History of Suicide: No Previous Psychiatric Hospitalization: Yes Protective Factors Assessment Responsible for Young Children: No Employed: No Stable Relationships: No Supportive Family: No Interval History Identifying Information SULY PAULA is a 36-year-old F who is currently lives at the [facility] of the [facility] in [place], has a history of depression, BPAD, PTSD, anxiety with panic attacks and substance use, and was admitted on 09/09/22 18:22 on a 201 voluntary commitment for mood changes, SI and confusion. Chief Complaint "Yoga helps, I thought I was having a seizure". Review of Systems Sleep Information Total Hours of Sleep: 6 Meal Information Percent Meal Consumed - Breakfast: 100 Percent Meal Consumed - Lunch: 100 Percent Meal Consumed - Dinner: 100 Telehealth Telehealth Options: Telephone only For the duration of the visit, provider was performing the assessment from: A different facility than the patient After establishing a telemedicine visit, patient was: Patient/authorized rep acknowledged consent and understanding and Gave permission to continue telehealth session (seen via telehealth due to COVID provider emergency (isolation awaiting results)) Total Time Spent (minutes): 7 Subjective Subjective Patient was seen & assessed and interval progress reviewed with treatment team. Patient frequently requesting prns but less pressured and able to tolerate longer periods in group. Staff felt she may be sexually preoccupied last pm but no reported behaviors. She did receive Ativan prn for eye fluttering, no seizure activity noted as remained conversive with reassurance from staff. Physical Exam Psychiatric Orientation: alert Speech: + abnormal rate/rhythm/volume of speech (fast but able to interrupt ) Mood: + anxious mood Thought Process: + concrete thought process; no thought blocking Hallucinations: no auditory hallucinations and no visual hallucinations Vital Signs (Past 24 Hours) Last Vital Signs Temp 36.9 C 09/14/22 06:42 Pulse 76 09/14/22 06:42 Resp 16 09/14/22 06:42 BP 101/71 09/14/22 06:42 Pulse Ox 99 09/10/22 20:44 O2 Del Method 09/13/22 06:00 Results & Data ([facility]) Current Inpatient Medications Current Inpatient Medications: Current Inpatient Medications Acetaminophen (Acetaminophen 325 Mg Tab) 650 mg PO Q4H PRN PRN Reason: Headache or Minor Fever Stop: 10/09/22 18:21 Last Admin: 09/13/22 14:04 Dose: 650 mg Al Hydrox/Mg Hydrox/Simethicone (Aluminum/Magnesium Susp 30 Ml Udc) 30 ml PO Q4H PRN PRN Reason: GI Upset Stop: 10/09/22 18:21 Benztropine Mesylate (Benztropine Mesylate 1 Mg Tab) 1 mg PO Q6 PRN PRN Reason: Muscle Spasm Stop: 10/12/22 17:59 Bismuth Subsalicylate (Bismuth Subsalicylate Liqd 236 Ml) 15 ml PO PRN PRN PRN Reason: Loose Stool Stop: 10/09/22 18:21 Haloperidol (Haloperidol 5 Mg Tab) 5 mg PO Q6 PRN PRN Reason: Anxiety/Agitation Stop: 10/12/22 12:59 Last Admin: 09/14/22 11:53 Dose: 5 mg Hydroxyzine HCl (Hydroxyzine Hcl 25 Mg Tab) 50 mg PO HSZ PRN PRN Reason: Insomnia Stop: 10/09/22 18:21 Last Admin: 09/12/22 21:05 Dose: 50 mg Ibuprofen (Ibuprofen 600 Mg Tab) 600 mg PO Q6H PRN PRN Reason: migraine headache Stop: 10/10/22 13:04 Last Admin: 09/13/22 14:04 Dose: 600 mg [place] Carbonate ([place] Carbonate 450 Mg Tabcr) 450 mg PO BID [facility] Stop: 10/13/22 20:59 Last Admin: 09/14/22 08:43 Dose: 450 mg Magnesium Hydroxide (Magnesium Hydroxide Susp 30 Ml Udc) 30 ml PO DAILY PRN PRN Reason: Constipation Stop: 10/09/22 18:21 Miscellaneous (Remove Nicoderm Patch) 1 each N/A DAILY@2100 [facility] Stop: 10/12/22 20:59 Last Admin: 09/13/22 20:53 Dose: 1 each Nicotine (Nicotine 21 Mg/24 Hr Tdsy) 21 mg TD QAM [facility] Stop: 10/10/22 09:59 Last Admin: 09/14/22 08:43 Dose: 21 mg Nicotine Polacrilex (Nicotine Polacrilex 2 Mg Gum) 2 piece MT PRN PRN PRN Reason: cravings Stop: 10/10/22 09:30 Last Admin: 09/14/22 09:00 Dose: 2 piece Olanzapine (Olanzapine 5 Mg Tablet) 5 mg PO QAM [facility] Stop: 10/12/22 08:59 Last Admin: 09/14/22 08:43 Dose: 5 mg Olanzapine (Olanzapine 5 Mg Tablet) 15 mg PO HS [facility] Stop: 10/12/22 21:59 Last Admin: 09/13/22 20:50 Dose: 15 mg Oxcarbazepine (Oxcarbazepine 150 Mg Tablet) 450 mg PO BID [facility] Stop: 10/10/22 20:59 Last Admin: 09/14/22 08:44 Dose: 450 mg Propranolol HCl (Propranolol Hcl 20 Mg Tab) 20 mg PO BID [facility] Stop: 10/10/22 12:59 Last Admin: 09/14/22 08:44 Dose: 20 mg Sodium Chloride (Sodium Chloride 0.65% Na Soln 45 Ml ([place])) 1 - 2 sprays NA PRN PRN PRN Reason: Nasal Dryness/Congestion Stop: 10/09/22 18:21 Zinc Acetate/Diphenhydramine (Diphenhydramine 2%/Zinc 0.1% Cream 28gm Tube) 1 appln EXT BID PRN PRN Reason: rash on upper leg Stop: 10/10/22 12:17 Mental Health & Subst Abuse Tx Psychiatrist Name of Psychiatrist: Jeffrey Adams Psychiatrist's Time of Appointment with Psychiatrist: 1:15 pm Psychiatric Appointment Comment: [address], [place], [place] Therapist Name of Therapist: Kendra Brown Therapist's Time of Therapist Appointment: 9:30 AM Therapy Appointment Comment: [address], [place] [address]
[2022-09-14] MEDS: IBUPROFEN 600 MG TAB PO PRN (17:45)
[2022-09-14] MEDS ORDERED: OLANZapine 20 MG TABLET PO SCH (22:00)
[2022-09-15] MEDS: PROPRANOLOL HCL 20 MG TAB PO SCH (08:58)
[2022-09-15] MEDS: OXcarbazepine 150 MG TABLET PO SCH ×2 (08:58→20:37)
[2022-09-15] MEDS: LITHIUM CARBONATE 450 MG TABCR PO SCH ×2 (08:59→20:37)
[2022-09-15] MEDS: NICOTINE 21 MG/24 HR TDSY TD SCH (08:59)
[2022-09-15] MEDS: haloperidoL 5 MG TAB PO PRN ×2 (10:10→15:38)
[2022-09-15] MEDS: NICOTINE POLACRILEX 2 MG GUM MT PRN ×3 (11:47→16:48)
--- NOTE | 2022-09-15 12:22 | Psychiatric Progress Note ---
Date of Service September 15, 2022 Impression / Recommendations Impression 36 yo woman with a history of BPAD, anxiety and substance use who presented with psychosis following recent discharge from the [facility] and stopping risperidone due to side effects of rash. Diagnostically consistent with unspecified psychosis with broad differential including mixed vs manic episode of BPAD vs schizoaffective disorder vs substance-induced from cannabis vs bipolar depression with psychotic features. The patient is deemed unstable and requires psychiatric hospitalization for diagnostic clarification, safety and stabilization, medication management and development of further coping skills. MNPR due hx hypersexual behaviors, disinhibited and labile on admission; remains disorganized. 09/15/2022: as per Dr. Monreal above. agreeable to conversion to LEÓN (1) Schizoaffective disorder: (2) Cannabis use disorder, moderate, dependence: (3) PTSD (post-traumatic stress disorder): Plan 09/15/2022: has been receiving Haldol most ams plus additional prn so will make Haldol 5 mg BID standing and begin Zyprexa taper in preparation for conversion to LEÓN. Patient has positive response to Haldol and requests it specifically, despite her disorganization has some basic understanding of risks/benefits and could be converted to palperidone down the line as young and lower risk TD. [place] level ordered for 09/18/22. 09/13/2022: titrate [place] to previou dose of Eskalith 450 mg BID. 09/12/2022: Zyprexa to 15 mg hs. 2.5 mg prn is not effective of Zyprexa nor is Hydroxyzine 25 mg so will offer Haldol 5 mg q6 prn instead. Monitor EPS, Cogentin if symptomatic. risks/benefits/alternatives reviewed re: [place], will start 300 mg BId today with plan to increase to 900 mg daily starting tomorrow if well tolerated. 09/11/2022: Increase olanzapine to 5mg qAM and 10 mg qhs with 2.5mg QID prn. 09/10/2022: The patient was admitted to the [facility] ([facility]) on q15 min checks (behavioral with suicide precautions) for safety. The patient will participate in group, recreational, and milieu therapies and will be offered additional individual and family sessions as clinically appropriate. -Continue tripleptal (will verify dose) and propranolol 20mg BID -Start olanzapine 5mg BID -Fasting lipid panel and glucose in the morning Inventory Assets Strengths: resilient, has housing, has outpatient therapy scheduled for next month Needs: medication management, safety and stabilization, increased coping skills, diagnostic clarification Suicide Risk Level Suicide Risk Level: Moderate (q15 min suicide checks) Risk Factors Assessment : Yes Do You Have Access To A Gun?: No Mental Health Diagnoses: Yes Substance Use Disorders: Yes Previous Attempt: Yes Family History of Suicide: No Previous Psychiatric Hospitalization: Yes Protective Factors Assessment Responsible for Young Children: No Employed: No Stable Relationships: No Supportive Family: No Interval History Identifying Information SULY PAULA is a 36-year-old F who is currently lives at the Out of the [facility] in [place], has a history of depression, BPAD, PTSD, anxiety with panic attacks and substance use, and was admitted on 09/09/22 18:22 on a 201 voluntary commitment for mood changes, SI and confusion. Chief Complaint "I think an injection is a good idea." Review of Systems Sleep Information Total Hours of Sleep: 6.5 Meal Information Percent Meal Consumed - Breakfast: 100 Percent Meal Consumed - Lunch: 100 Percent Meal Consumed - Dinner: 75 Subjective Subjective Patient was seen & assessed and interval progress reviewed with nursing and social work. Remains disorganized, restless. Preoccupied with a chipped tooth (does not appear new, red, inflamed) noticed as it stuck to her nicotine gum. Physical Exam Psychiatric Orientation: alert Apperance: appropriately dressed and + disheveled Eye Contact: + fair eye contact Speech: + abnormal rate/rhythm/volume of speech Affect: + depressed affect Mood: + depressed mood Thought Process: + tangential thought process Thought Content: + delusions Suicidal Thoughts: denies suicidal thoughts Homicidal Thoughts: denies homicidal thoughts Hallucinations: no auditory hallucinations and no visual hallucinations Cognition: language grossly intact; + attention not intact Estimated Intelligence: consistent with education level Insight: + limited insight Judgement: + limited judgement Vital Signs (Past 24 Hours) Last Vital Signs Temp 36.9 C 09/15/22 06:00 Pulse 74 09/15/22 08:55 Resp 16 09/15/22 06:00 BP 110/67 09/15/22 08:55 Pulse Ox 98 09/15/22 06:00 O2 Del Method 09/15/22 06:00 Results & Data ([facility]) Current Inpatient Medications Current Inpatient Medications: Current Inpatient Medications Acetaminophen (Acetaminophen 325 Mg Tab) 650 mg PO Q4H PRN PRN Reason: Headache or Minor Fever Stop: 10/09/22 18:21 Last Admin: 09/13/22 14:04 Dose: 650 mg Al Hydrox/Mg Hydrox/Simethicone (Aluminum/Magnesium Susp 30 Ml Udc) 30 ml PO Q4H PRN PRN Reason: GI Upset Stop: 10/09/22 18:21 Benztropine Mesylate (Benztropine Mesylate 1 Mg Tab) 1 mg PO Q6 PRN PRN Reason: Muscle Spasm Stop: 10/12/22 17:59 Bismuth Subsalicylate (Bismuth Subsalicylate Liqd 236 Ml) 15 ml PO PRN PRN PRN Reason: Loose Stool Stop: 10/09/22 18:21 Haloperidol (Haloperidol 5 Mg Tab) 5 mg PO Q6 PRN PRN Reason: Anxiety/Agitation Stop: 10/12/22 12:59 Last Admin: 09/15/22 10:10 Dose: 5 mg Hydroxyzine HCl (Hydroxyzine Hcl 25 Mg Tab) 50 mg PO HSZ PRN PRN Reason: Insomnia Stop: 10/09/22 18:21 Last Admin: 09/12/22 21:05 Dose: 50 mg Ibuprofen (Ibuprofen 600 Mg Tab) 600 mg PO Q6H PRN PRN Reason: migraine headache Stop: 10/10/22 13:04 Last Admin: 09/14/22 17:45 Dose: 600 mg [place] Carbonate ([place] Carbonate 450 Mg Tabcr) 450 mg PO BID [facility] Stop: 10/13/22 20:59 Last Admin: 09/15/22 08:59 Dose: 450 mg Magnesium Hydroxide (Magnesium Hydroxide Susp 30 Ml Udc) 30 ml PO DAILY PRN PRN Reason: Constipation Stop: 10/09/22 18:21 Miscellaneous (Remove Nicoderm Patch) 1 each N/A DAILY@2100 [facility] Stop: 10/12/22 20:59 Last Admin: 09/14/22 20:48 Dose: 1 each Nicotine (Nicotine 21 Mg/24 Hr Tdsy) 21 mg TD QAM [facility] Stop: 10/10/22 09:59 Last Admin: 09/15/22 08:59 Dose: 21 mg Nicotine Polacrilex (Nicotine Polacrilex 2 Mg Gum) 2 piece MT PRN PRN PRN Reason: cravings Stop: 10/10/22 09:30 Last Admin: 09/15/22 11:47 Dose: 2 piece Oxcarbazepine (Oxcarbazepine 150 Mg Tablet) 450 mg PO BID [facility] Stop: 10/10/22 20:59 Last Admin: 09/15/22 08:58 Dose: 450 mg Propranolol HCl (Propranolol Hcl 20 Mg Tab) 20 mg PO BID [facility] Stop: 10/10/22 12:59 Last Admin: 09/15/22 08:58 Dose: 20 mg Sodium Chloride (Sodium Chloride 0.65% Na Soln 45 Ml ([place])) 1 - 2 sprays NA PRN PRN PRN Reason: Nasal Dryness/Congestion Stop: 10/09/22 18:21 Zinc Acetate/Diphenhydramine (Diphenhydramine 2%/Zinc 0.1% Cream 28gm Tube) 1 appln EXT BID PRN PRN Reason: rash on upper leg Stop: 10/10/22 12:17 Mental Health & Subst Abuse Tx Psychiatrist Name of Psychiatrist: Jeffrey Adams Psychiatrist's Time of Appointment with Psychiatrist: 1:15 pm Psychiatric Appointment Comment: [address], [place], [place] Therapist Name of Therapist: Kendra Brown Therapist's Time of Therapist Appointment: 9:30 AM Therapy Appointment Comment: [address], [place] [address]
[2022-09-15] MEDS: BENZTROPINE MESYLATE 1 MG TAB PO PRN (13:22)
[2022-09-15] MEDS: LORazepam 0.5 MG TAB PO PRN (18:15)
[2022-09-15] MEDS: haloperidoL 5 MG TAB PO SCH (20:36)
[2022-09-15] MEDS: PROPRANOLOL HCL 10 MG TAB PO SCH (20:37)
[2022-09-15] MEDS ORDERED: OLANZapine 5 MG TABLET PO SCH (22:00)
[2022-09-16] MEDS: NICOTINE POLACRILEX 2 MG GUM MT PRN ×4 (07:54→18:02)
[2022-09-16] MEDS: NICOTINE 21 MG/24 HR TDSY TD SCH (09:12)
[2022-09-16] MEDS: PROPRANOLOL HCL 10 MG TAB PO SCH ×2 (09:12→20:33)
[2022-09-16] MEDS: OXcarbazepine 150 MG TABLET PO SCH ×2 (09:12→20:32)
[2022-09-16] MEDS: LITHIUM CARBONATE 450 MG TABCR PO SCH ×2 (09:13→20:33)
[2022-09-16] MEDS: haloperidoL 5 MG TAB PO SCH (09:14)
[2022-09-16] MEDS: haloperidoL 5 MG TAB PO PRN (11:58)
[2022-09-16] MEDS: BENZTROPINE MESYLATE 1 MG TAB PO PRN (14:22)
[2022-09-16] MEDS ORDERED: haloperidoL 5 MG TAB PO PRN (15:23)
--- NOTE | 2022-09-16 16:37 | Psychiatric Progress Note ---
Date of Service September 16, 2022 Impression / Recommendations Impression 36 yo woman with a history of BPAD, anxiety and substance use who presented with psychosis following recent discharge from the [facility] and stopping risperidone due to side effects of rash. Diagnostically consistent with unspecified psychosis with broad differential including mixed vs manic episode of BPAD vs schizoaffective disorder vs substance-induced from cannabis vs bipolar depression with psychotic features. The patient is deemed unstable and requires psychiatric hospitalization for diagnostic clarification, safety and stabilization, medication management and development of further coping skills. MNPR due hx hypersexual behaviors, disinhibited and labile on admission; remains disorganized. 09/16/2022: reviewed interim progress per Dr. Chavez, she remains mixed presentation of schizoaffective disorder still with rapid speech and tangential thought process. Unclear if substance withdrawal is at all contributing to odd thought process and frequent prn requests. Will continue with cross-taper from olanzapine to haldol with goal of tapering ativan as mood stabilizes. (1) Schizoaffective disorder: (2) Cannabis use disorder, moderate, dependence: (3) PTSD (post-traumatic stress disorder): Plan 09/16/2022: Decrease olanzapine to 7.5mg hs. Increase haldol to 5mg qAM and 7.5mg HS. 09/15/2022: has been receiving Haldol most ams plus additional prn so will make Haldol 5 mg BID standing and begin Zyprexa taper in preparation for conversion to LEÓN. Patient has positive response to Haldol and requests it specifically, despite her disorganization has some basic understanding of risks/benefits and could be converted to palperidone down the line as young and lower risk TD. [place] level ordered for 09/18/22. 09/13/2022: titrate [place] to previou dose of Eskalith 450 mg BID. 09/12/2022: Zyprexa to 15 mg hs. 2.5 mg prn is not effective of Zyprexa nor is Hydroxyzine 25 mg so will offer Haldol 5 mg q6 prn instead. Monitor EPS, Cogentin if symptomatic. risks/benefits/alternatives reviewed re: [place], will start 300 mg BId today with plan to increase to 900 mg daily starting tomorrow if well tolerated. 09/11/2022: Increase olanzapine to 5mg qAM and 10 mg qhs with 2.5mg QID prn. 09/10/2022: The patient was admitted to the [facility] ([facility] inpatient mental health unit) on q15 min checks (behavioral with suicide precautions) for safety. The patient will participate in group, recreational, and milieu therapies and will be offered additional individual and family sessions as clinically appropriate. -Continue tripleptal (will verify dose) and propranolol 20mg BID -Start olanzapine 5mg BID -Fasting lipid panel and glucose in the morning Inventory Assets Strengths: resilient, has housing, has outpatient therapy scheduled for next month Needs: medication management, safety and stabilization, increased coping skills, diagnostic clarification Suicide Risk Level Suicide Risk Level: High-Moderate (q15 min suicide checks) (depression/mixed mood with impuslivity and AH but no command hallucinations and denies plan nor intent related to intermittent SI. Agrees to alert nursing if SI intensifies, or if she feels unable to remain safe. ) Risk Factors Assessment : Yes Do You Have Access To A Gun?: No Mental Health Diagnoses: Yes Substance Use Disorders: Yes Previous Attempt: Yes Family History of Suicide: No Previous Psychiatric Hospitalization: Yes Protective Factors Assessment Responsible for Young Children: No Employed: No Stable Relationships: No Supportive Family: No Interval History Identifying Information SULY PAULA is a 36-year-old F who is currently lives at the Out of the [facility] in [place], has a history of depression, BPAD, PTSD, anxiety with panic attacks and substance use, and was admitted on 09/09/22 18:22 on a 201 voluntary commitment for mood changes, SI and confusion. Chief Complaint "I keep having intrusive thoughts like going outside the hospital and commiting suicide but not in here, I just feel really low". Review of Systems Sleep Information Total Hours of Sleep: 9.25 Sleep Comments: Pt not observed awake, took Vistaril @[facility]. Meal Information Percent Meal Consumed - Breakfast: 100 Percent Meal Consumed - Lunch: 25 Percent Meal Consumed - Dinner: 75 Subjective Subjective Patient was seen & assessed and interval progress reviewed with treatment team nursing and social work. Making very frequent requests at nurses station for prns. More references to history of her functional neurological syndrome and thinking she may "have a seizure" when requesting prns. Feels her mood is low and wonders about an antidepressant. Also states she is having intrusive thoughts/visions of words like suicide. Remains easily overwhelmed. Denies any medication side effects. Finding haldol helpful, agreeable to ongoing cross- taper. Physical Exam Psychiatric Orientation: alert Apperance: appropriately dressed and + disheveled Eye Contact: + fair eye contact Speech: + abnormal rate/rhythm/volume of speech (rapid, hyperverbal) Affect: + depressed affect and + anxious affect Mood: + depressed mood Thought Process: + tangential thought process and + flight of ideas Thought Content: + delusions Suicidal Thoughts: denies suicidal plan (none for in the hospital); + reports suicidal thoughts (intermittent) Homicidal Thoughts: denies homicidal thoughts Hallucinations: + auditory hallucinations; no visual hallucinations Cognition: language grossly intact; + attention not intact Estimated Intelligence: consistent with education level Insight: + limited insight Judgement: + limited judgement Vital Signs (Past 24 Hours) Last Vital Signs Temp 37.3 C 09/16/22 09:09 Pulse 80 09/16/22 09:09 Resp 16 09/16/22 09:09 BP 110/74 09/16/22 09:09 Pulse Ox 97 09/16/22 09:09 O2 Del Method 09/16/22 09:09 Results & Data ([facility]) Current Inpatient Medications Current Inpatient Medications: Current Inpatient Medications Acetaminophen (Acetaminophen 325 Mg Tab) 650 mg PO Q4H PRN PRN Reason: Headache or Minor Fever Stop: 10/09/22 18:21 Last Admin: 09/13/22 14:04 Dose: 650 mg Al Hydrox/Mg Hydrox/Simethicone (Aluminum/Magnesium Susp 30 Ml Udc) 30 ml PO Q4H PRN PRN Reason: GI Upset Stop: 10/09/22 18:21 Benztropine Mesylate (Benztropine Mesylate 1 Mg Tab) 1 mg PO Q6 PRN PRN Reason: Muscle Spasm Stop: 10/12/22 17:59 Last Admin: 09/16/22 14:22 Dose: 1 mg Bismuth Subsalicylate (Bismuth Subsalicylate Liqd 236 Ml) 15 ml PO PRN PRN PRN Reason: Loose Stool Stop: 10/09/22 18:21 Haloperidol (Haloperidol 0.5 Mg Tab) 2.5 mg PO BID PRN PRN Reason: Anxiety/Agitation Stop: 10/16/22 15:20 Haloperidol (Haloperidol 5 Mg Tab) 5 mg PO Q6 PRN PRN Reason: Agitation Stop: 10/12/22 12:59 Haloperidol (Haloperidol 5 Mg Tab) 5 mg PO QD@08 [facility] Stop: 10/17/22 07:59 Haloperidol (Haloperidol 5 Mg Tab) 7.5 mg PO HS [facility] Stop: 10/16/22 21:59 Hydroxyzine HCl (Hydroxyzine Hcl 25 Mg Tab) 50 mg PO HSZ PRN PRN Reason: Insomnia Stop: 10/09/22 18:21 Last Admin: 09/12/22 21:05 Dose: 50 mg Ibuprofen (Ibuprofen 600 Mg Tab) 600 mg PO Q6H PRN PRN Reason: migraine headache Stop: 10/10/22 13:04 Last Admin: 09/14/22 17:45 Dose: 600 mg [place] Carbonate ([place] Carbonate 450 Mg Tabcr) 450 mg PO BID [facility] Stop: 10/13/22 20:59 Last Admin: 09/16/22 09:13 Dose: 450 mg Lorazepam (Lorazepam 0.5 Mg Tab) 0.5 mg PO Q8 PRN PRN Reason: Anxiety Stop: 10/15/22 16:58 Last Admin: 09/15/22 18:15 Dose: 0.5 mg Magnesium Hydroxide (Magnesium Hydroxide Susp 30 Ml Udc) 30 ml PO DAILY PRN PRN Reason: Constipation Stop: 10/09/22 18:21 Miscellaneous (Remove Nicoderm Patch) 1 each N/A DAILY@2100 [facility] Stop: 10/12/22 20:59 Last Admin: 09/15/22 20:45 Dose: 1 each Nicotine (Nicotine 21 Mg/24 Hr Tdsy) 21 mg TD QAM [facility] Stop: 10/10/22 09:59 Last Admin: 09/16/22 09:12 Dose: 21 mg Nicotine Polacrilex (Nicotine Polacrilex 2 Mg Gum) 2 piece MT PRN PRN PRN Reason: cravings Stop: 10/10/22 09:30 Last Admin: 09/16/22 15:58 Dose: 2 piece Olanzapine (Olanzapine 2.5 Mg Tab) 7.5 mg PO HS [facility] Stop: 10/16/22 21:59 Oxcarbazepine (Oxcarbazepine 150 Mg Tablet) 450 mg PO BID [facility] Stop: 10/10/22 20:59 Last Admin: 09/16/22 09:12 Dose: 450 mg Propranolol HCl (Propranolol Hcl 10 Mg Tab) 30 mg PO BID [facility] Stop: 10/15/22 20:59 Last Admin: 09/16/22 09:12 Dose: 30 mg Sodium Chloride (Sodium Chloride 0.65% Na Soln 45 Ml ([place])) 1 - 2 sprays NA PRN PRN PRN Reason: Nasal Dryness/Congestion Stop: 10/09/22 18:21 Zinc Acetate/Diphenhydramine (Diphenhydramine 2%/Zinc 0.1% Cream 28gm Tube) 1 appln EXT BID PRN PRN Reason: rash on upper leg Stop: 10/10/22 12:17 Mental Health & Subst Abuse Tx Psychiatrist Name of Psychiatrist: [facility] Psychiatrist's Time of Appointment with Psychiatrist: to be connected to behavioral health services/psychiatry. Psychiatric Appointment Comment[facility] [address] [facility] [place] [id number] Therapist Name of Therapist: Kendra Brown Therapist's Time of Therapist Appointment: 9:30 AM Therapy Appointment Comment: [address], [place] [address] Post Discharge Appointments Primary Care Physician Provider Appointment Comment: See walk-in clinic information to be connected to services.
[2022-09-16] MEDS: hydrOXYzine HCl 25 MG TAB PO PRN (20:33)
[2022-09-16] MEDS ORDERED: haloperidoL 5 MG TAB PO SCH (22:00)
[2022-09-16] MEDS ORDERED: OLANZAPINE 2.5 MG TAB PO SCH (22:00)
--- NOTE | 2022-09-17 09:28 | Psychiatric Progress Note ---
Date of Service September 17, 2022 Impression / Recommendations Impression 36 yo woman with a history of BPAD, anxiety and substance use who presented with psychosis following recent discharge from the [facility] and stopping risperidone due to side effects of rash. Diagnostically consistent with unspecified psychosis with broad differential including mixed vs manic episode of BPAD vs schizoaffective disorder vs substance-induced from cannabis vs bipolar depression with psychotic features. The patient is deemed unstable and requires psychiatric hospitalization for diagnostic clarification, safety and stabilization, medication management and development of further coping skills. MNPR due hx hypersexual behaviors, disinhibited and labile on admission; remains disorganized. 09/17/2022: still wih rapid speech and psychosis but lessening of auditory hallucinations with cross-taper to haldol. Goal of tapering ativan as anxiety lessens. No signs of akathisia, rather pacing and anxiety seems to be driven by manic symptoms/presentation. (1) Schizoaffective disorder: (2) Cannabis use disorder, moderate, dependence: (3) PTSD (post-traumatic stress disorder): Plan 09/17/2022: Decrease olanzapine to 2.5mg qhs. Increase haldol to 5mg qAM and 10mg qHS. Consider haldol decanoate 100mg IM tomorrow. 09/16/2022: Decrease olanzapine to 7.5mg hs. Increase haldol to 5mg qAM and 7.5mg HS. 09/15/2022: has been receiving Haldol most ams plus additional prn so will make Haldol 5 mg BID standing and begin Zyprexa taper in preparation for conversion to LEÓN. Patient has positive response to Haldol and requests it specifically, despite her disorganization has some basic understanding of risks/benefits and could be converted to palperidone down the line as young and lower risk TD. [place] level ordered for 09/18/22. 09/13/2022: titrate [place] to previou dose of Eskalith 450 mg BID. 09/12/2022: Zyprexa to 15 mg hs. 2.5 mg prn is not effective of Zyprexa nor is Hydroxyzine 25 mg so will offer Haldol 5 mg q6 prn instead. Monitor EPS, Cogentin if symptomatic. risks/benefits/alternatives reviewed re: [place], will start 300 mg BId today with plan to increase to 900 mg daily starting tomorrow if well tolerated. 09/11/2022: Increase olanzapine to 5mg qAM and 10 mg qhs with 2.5mg QID prn. 09/10/2022: The patient was admitted to the [facility] ([facility] mental health unit) on q15 min checks (behavioral with suicide precautions) for safety. The patient will participate in group, recreational, and milieu therapies and will be offered additional individual and family sessions as clinically appropriate. -Continue tripleptal (will verify dose) and propranolol 20mg BID -Start olanzapine 5mg BID -Fasting lipid panel and glucose in the morning Inventory Assets Strengths: resilient, has housing, has outpatient therapy scheduled for next month Needs: medication management, safety and stabilization, increased coping skills, diagnostic clarification Suicide Risk Level Suicide Risk Level: Moderate (q15 min suicide checks) (depression/mixed mood with impulsivity with intermittent SI but no plan or intent. Agrees to alert nursing if SI intensifies, or if she feels unable to remain safe. ) Risk Factors Assessment : Yes Do You Have Access To A Gun?: No Mental Health Diagnoses: Yes Substance Use Disorders: Yes Previous Attempt: Yes Family History of Suicide: No Previous Psychiatric Hospitalization: Yes Protective Factors Assessment Responsible for Young Children: No Employed: No Stable Relationships: No Supportive Family: No Interval History Identifying Information SULY PAULA is a 36-year-old F who is currently lives at the Out of the [facility] in [place], has a history of depression, BPAD, PTSD, anxiety with panic attacks and substance use, and was admitted on 09/09/22 18:22 on a 201 voluntary commitment for mood changes, SI and confusion. Chief Complaint "It's a little scary I'm not hearing the voices anymore and that usually means I've been psychotic and forgetting things". Review of Systems Sleep Information Total Hours of Sleep: 9 Sleep Comments: Meal Information Percent Meal Consumed - Breakfast: 100 Percent Meal Consumed - Lunch: 25 Percent Meal Consumed - Dinner: 100 Subjective Subjective Patient was seen & assessed and interval progress reviewed with treatment team nursing and social work. Very medication seeking yesterday and irritable when attempts were made to encourage her to use coping skills. Slammed her door, stomping and threatening seizure without seizures during the afternoon/evening. But went to bed early and slept well. This morning still pacing and anxious but auditory hallucinations are "fading" and not bothersome today. Still overwhelmed about recent symptoms and worries about what happened in recent days and if she'll lose her memories. No side effects from medication changes. Likes the haldol. Interested in haldol decanoate option. Physical Exam Psychiatric Orientation: alert and oriented x 3 Apperance: appropriately dressed and + disheveled Eye Contact: good eye contact Speech: + abnormal rate/rhythm/volume of speech (rapid, hyperverbal) Affect: + anxious affect and + labile affect Mood: + anxious mood and + irritable mood Thought Process: + tangential thought process Thought Content: + delusions Suicidal Thoughts: denies suicidal plan; + reports suicidal thoughts (intermittent) Homicidal Thoughts: denies homicidal thoughts Hallucinations: no auditory hallucinations and no visual hallucinations Cognition: language grossly intact; + attention not intact Estimated Intelligence: consistent with education level Insight: + limited insight Judgement: + limited judgement Vital Signs (Past 24 Hours) Last Vital Signs Temp 36.2 C L 09/17/22 06:51 Pulse 74 09/17/22 06:52 Resp 18 09/17/22 06:51 BP 111/79 09/17/22 06:52 Pulse Ox 97 09/16/22 20:31 O2 Del Method 09/16/22 20:31 Results & Data ([facility]) Current Inpatient Medications Current Inpatient Medications: Current Inpatient Medications Acetaminophen (Acetaminophen 325 Mg Tab) 650 mg PO Q4H PRN PRN Reason: Headache or Minor Fever Stop: 10/09/22 18:21 Last Admin: 09/13/22 14:04 Dose: 650 mg Al Hydrox/Mg Hydrox/Simethicone (Aluminum/Magnesium Susp 30 Ml Udc) 30 ml PO Q4H PRN PRN Reason: GI Upset Stop: 10/09/22 18:21 Benztropine Mesylate (Benztropine Mesylate 1 Mg Tab) 1 mg PO Q6 PRN PRN Reason: Muscle Spasm Stop: 10/12/22 17:59 Last Admin: 09/16/22 14:22 Dose: 1 mg Bismuth Subsalicylate (Bismuth Subsalicylate Liqd 236 Ml) 15 ml PO PRN PRN PRN Reason: Loose Stool Stop: 10/09/22 18:21 Haloperidol (Haloperidol 0.5 Mg Tab) 2.5 mg PO BID PRN PRN Reason: Anxiety/Agitation Stop: 10/16/22 15:20 Haloperidol (Haloperidol 5 Mg Tab) 5 mg PO Q6 PRN PRN Reason: Agitation Stop: 10/12/22 12:59 Haloperidol (Haloperidol 5 Mg Tab) 5 mg PO QD@08 [facility] Stop: 10/17/22 07:59 Haloperidol (Haloperidol 5 Mg Tab) 7.5 mg PO HS [facility] Stop: 10/16/22 21:59 Last Admin: 09/16/22 20:33 Dose: 7.5 mg Hydroxyzine HCl (Hydroxyzine Hcl 25 Mg Tab) 50 mg PO HSZ PRN PRN Reason: Insomnia Stop: 10/09/22 18:21 Last Admin: 09/16/22 20:33 Dose: 50 mg Ibuprofen (Ibuprofen 600 Mg Tab) 600 mg PO Q6H PRN PRN Reason: migraine headache Stop: 10/10/22 13:04 Last Admin: 09/14/22 17:45 [address]ose: [address] Carbonate ([place] Carbonate 450 Mg Tabcr) 450 mg PO BID [facility] Stop: 10/13/22 20:59 Last Admin: 09/16/22 20:33 Dose: 450 mg Lorazepam (Lorazepam 0.5 Mg Tab) 0.5 mg PO Q8 PRN PRN Reason: Anxiety Stop: 10/15/22 16:58 Last Admin: 09/15/22 18:15 Dose: 0.5 mg Magnesium Hydroxide (Magnesium Hydroxide Susp 30 Ml Udc) 30 ml PO DAILY PRN PRN Reason: Constipation Stop: 10/09/22 18:21 Miscellaneous (Remove Nicoderm Patch) 1 each N/A DAILY@2100 [facility] Stop: 10/12/22 20:59 Last Admin: 09/16/22 20:37 Dose: 1 each Nicotine (Nicotine 21 Mg/24 Hr Tdsy) 21 mg TD QAM [facility] Stop: 10/10/22 09:59 Last Admin: 09/16/22 09:12 Dose: 21 mg Nicotine Polacrilex (Nicotine Polacrilex 2 Mg Gum) 2 piece MT PRN PRN PRN Reason: cravings Stop: 10/10/22 09:30 Last Admin: 09/16/22 18:02 Dose: 2 piece Olanzapine (Olanzapine 2.5 Mg Tab) 7.5 mg PO HS [facility] Stop: 10/16/22 21:59 Last Admin: 09/16/22 20:33 Dose: 7.5 mg Oxcarbazepine (Oxcarbazepine 150 Mg Tablet) 450 mg PO BID [facility] Stop: 10/10/22 20:59 Last Admin: 09/16/22 20:32 Dose: 450 mg Propranolol HCl (Propranolol Hcl 10 Mg Tab) 30 mg PO BID [facility] Stop: 10/15/22 20:59 Last Admin: 09/16/22 20:33 Dose: 30 mg Sodium Chloride (Sodium Chloride 0.65% Na Soln 45 Ml ([place])) 1 - 2 sprays NA PRN PRN PRN Reason: Nasal Dryness/Congestion Stop: 10/09/22 18:21 Zinc Acetate/Diphenhydramine (Diphenhydramine 2%/Zinc 0.1% Cream 28gm Tube) 1 appln EXT BID PRN PRN Reason: rash on upper leg Stop: 10/10/22 12:17 Mental Health & Subst Abuse Tx Psychiatrist Name of Psychiatrist: [facility] Psychiatrist's Time of Appointment with Psychiatrist: to be connected to behavioral health services/psychiatry. Psychiatric Appointment Comment: [address] [facility] [place] [id number] Therapist Name of Therapist: Kendra Brown Therapist's Time of Therapist Appointment: 9:30 AM Therapy Appointment Comment: [address], [place] [address] Post Discharge Appointments Primary Care Physician Provider Appointment Comment: See walk-in clinic information to be connected to services.
[2022-09-17] MEDS: haloperidoL 5 MG TAB PO SCH ×2 (09:31→21:58)
[2022-09-17] MEDS: LITHIUM CARBONATE 450 MG TABCR PO SCH ×2 (09:31→21:59)
[2022-09-17] MEDS: NICOTINE 21 MG/24 HR TDSY TD SCH (09:32)
[2022-09-17] MEDS: PROPRANOLOL HCL 10 MG TAB PO SCH ×2 (09:32→21:59)
[2022-09-17] MEDS: OXcarbazepine 150 MG TABLET PO SCH ×2 (09:32→21:59)
[2022-09-17] MEDS: NICOTINE POLACRILEX 2 MG GUM MT PRN ×3 (09:47→16:32)
[2022-09-17] MEDS: LORazepam 0.5 MG TAB PO PRN (10:38)
[2022-09-17] MEDS: haloperidoL 0.5 MG TAB PO PRN ×2 (13:12→16:29)
[2022-09-17] MEDS ORDERED: OLANZAPINE 2.5 MG TAB PO SCH (22:00)
--- NOTE | 2022-09-18 09:21 | Psychiatric Progress Note ---
Date of Service September 18, 2022 Impression / Recommendations Impression 36 yo woman with a history of BPAD, anxiety and substance use who presented with psychosis following recent discharge from the [facility] and stopping risperidone due to side effects of rash. Diagnostically consistent with unspecified psychosis with broad differential including mixed vs manic episode of BPAD vs schizoaffective disorder vs substance-induced from cannabis vs bipolar depression with psychotic features. The patient is deemed unstable and requires psychiatric hospitalization for diagnostic clarification, safety and stabilization, medication management and development of further coping skills. MNPR due hx hypersexual behaviors, disinhibited and labile on admission; remains disorganized. 09/18/2022: slightly less hyperverbal and thought process less tangential today, showing signs of progress and benefiting from haldol. Reviewed [place] level, therapeutic at 0.7 and will avoid targeting 0.8-1.2 range due to history of medication non-adherence and disorganization so prefer her to be on lower end as felt to be higher risk for developing toxicity. She is requesting and would like the haldol decanoate option. Discussed risks, benefits and alternatives. Patient would like to start and consented to haldol decanoate for schizoaffective disorder. Reviewed side effects including but not limited to: movement (TD, NMS), cardiac (QTc prolongation), and metabolic (stroke, insulin resistance) and necessity for routine fasting lipid and glucose labwork (baseline done on 09/11/22 and all within normal range) and AIMS re-done with score of 0. (1) Schizoaffective disorder: (2) Cannabis use disorder, moderate, dependence: (3) PTSD (post-traumatic stress disorder): Plan 09/18/2022: haldol decanoate 100mg IM today. Discontinue olanzapine. Continue with haldol po for overlap with goal of dose reduction in 1 week. 09/17/2022: Decrease olanzapine to 2.5mg qhs. Increase haldol to 5mg qAM and 10mg qHS. Consider haldol decanoate 100mg IM tomorrow. 09/16/2022: Decrease olanzapine to 7.5mg hs. Increase haldol to 5mg qAM and 7.5mg HS. 09/15/2022: has been receiving Haldol most ams plus additional prn so will make Haldol 5 mg BID standing and begin Zyprexa taper in preparation for conversion to LEÓN. Patient has positive response to Haldol and requests it specifically, despite her disorganization has some basic understanding of risks/benefits and could be converted to palperidone down the line as young and lower risk TD. [place] level ordered for 09/18/22. 09/13/2022: titrate [place] to previou dose of Eskalith 450 mg BID. 09/12/2022: Zyprexa to 15 mg hs. 2.5 mg prn is not effective of Zyprexa nor is Hydroxyzine 25 mg so will offer Haldol 5 mg q6 prn instead. Monitor EPS, Cogentin if symptomatic. risks/benefits/alternatives reviewed re: [place], will start 300 mg BId today with plan to increase to 900 mg daily starting tomorrow if well tolerated. 09/11/2022: Increase olanzapine to 5mg qAM and 10 mg qhs with 2.5mg QID prn. 09/10/2022: The patient was admitted to the [facility]) on q15 min checks (behavioral with suicide precautions) for safety. The patient will participate in group, recreational, and milieu therapies and will be offered additional individual and family sessions as clinically appropriate. -Continue tripleptal (will verify dose) and propranolol 20mg BID -Start olanzapine 5mg BID -Fasting lipid panel and glucose in the morning Inventory Assets Strengths: resilient, has housing, has outpatient therapy scheduled for next month Needs: medication management, safety and stabilization, increased coping skills, diagnostic clarification Suicide Risk Level Suicide Risk Level: Moderate (q15 min suicide checks) (depression/mixed mood with impulsivity with intermittent SI but no plan or intent. Agrees to alert nursing if SI intensifies, or if she feels unable to remain safe. ) Risk Factors Assessment : Yes Do You Have Access To A Gun?: No Mental Health Diagnoses: Yes Substance Use Disorders: Yes Previous Attempt: Yes Family History of Suicide: No Previous Psychiatric Hospitalization: Yes Protective Factors Assessment Responsible for Young Children: No Employed: No Stable Relationships: No Supportive Family: No Interval History Identifying Information SULY PAULA is a 36-year-old F who is currently lives at the Out of the [facility] in [place], has a history of depression, BPAD, PTSD, anxiety with panic attacks and substance use, and was admitted on 09/09/22 18:22 on a 201 voluntary commitment for mood changes, SI and confusion. Chief Complaint "Can I get my shot today?". Review of Systems Sleep Information Total Hours of Sleep: 9.25 Meal Information Percent Meal Consumed - Breakfast: 100 Percent Meal Consumed - Lunch: 100 Percent Meal Consumed - Dinner: 100 Subjective Subjective Patient was seen & assessed and interval progress reviewed with treatment team nursing and social work. Did not go to any groups last night. Very perseverative about where she should live last night. Today eager for haldol decanoate shot as she feels this will help her with medication adherence as sometimes she forgets to take her po medications. She is finding haldol helpful and had a bad dream where she heard a voice but has not been hearing any voices when awake. States she's still getting used to not hearing any voices but likes that they've gone away and that it's helping her mood. Still anxious at times but doing yoga and stretches to help with this. Remains quite medication focused when distress increases. Denies any medication side effects. Physical Exam Psychiatric Orientation: alert and oriented x 3 Apperance: appropriately dressed and + disheveled Eye Contact: good eye contact Speech: + abnormal rate/rhythm/volume of speech (rapid, less hyperverbal today) Affect: + anxious affect and + labile affect Mood: + anxious mood Thought Process: + circumstantial thought process Thought Content: reality based without delusions Suicidal Thoughts: denies suicidal plan; + reports suicidal thoughts (intermittent) Homicidal Thoughts: denies homicidal thoughts Hallucinations: no auditory hallucinations and no visual hallucinations Cognition: language grossly intact; + attention not intact (but improving today) Estimated Intelligence: consistent with education level Insight: + limited insight Judgement: + limited judgement Vital Signs (Past 24 Hours) Last Vital Signs Temp 36.6 C 09/17/22 21:57 Pulse 105 H 09/17/22 21:57 Resp 16 09/17/22 21:57 BP 112/72 09/17/22 21:57 Pulse Ox 97 09/16/22 20:31 O2 Del Method 09/16/22 20:31 Results & Data ([facility]) Laboratory Results Laboratory Results - last 24 hr 09/18/22 07:43 Ladd 0.7 Current Inpatient Medications Current Inpatient Medications: Current Inpatient Medications Acetaminophen (Acetaminophen 325 Mg Tab) 650 mg PO Q4H PRN PRN Reason: Headache or Minor Fever Stop: 10/09/22 18:21 Last Admin: 09/13/22 14:04 Dose: 650 mg Al Hydrox/Mg Hydrox/Simethicone (Aluminum/Magnesium Susp 30 Ml Udc) 30 ml PO Q4H PRN PRN Reason: GI Upset Stop: 10/09/22 18:21 Benztropine Mesylate (Benztropine Mesylate 1 Mg Tab) 1 mg PO Q6 PRN PRN Reason: Muscle Spasm Stop: 10/12/22 17:59 Last Admin: 09/16/22 14:22 Dose: 1 mg Bismuth Subsalicylate (Bismuth Subsalicylate Liqd 236 Ml) 15 ml PO PRN PRN PRN Reason: Loose Stool Stop: 10/09/22 18:21 Haloperidol (Haloperidol 0.5 Mg Tab) 2.5 mg PO BID PRN PRN Reason: Anxiety/Agitation Stop: 10/16/22 15:20 Last Admin: 09/17/22 16:29 Dose: 2.5 mg Haloperidol (Haloperidol 5 Mg Tab) 5 mg PO Q6 PRN PRN Reason: Agitation Stop: 10/12/22 12:59 Haloperidol (Haloperidol 5 Mg Tab) 5 mg PO QD@08 [facility] Stop: 10/17/22 07:59 Last Admin: 09/17/22 09:31 Dose: 5 mg Haloperidol (Haloperidol 5 Mg Tab) 10 mg PO HS [facility] Stop: 10/17/22 21:59 Last Admin: 09/17/22 21:58 Dose: 10 mg Hydroxyzine HCl (Hydroxyzine Hcl 25 Mg Tab) 50 mg PO HSZ PRN PRN Reason: Insomnia Stop: 10/09/22 18:21 Last Admin: 09/16/22 20:33 Dose: 50 mg Ibuprofen (Ibuprofen 600 Mg Tab) 600 mg PO Q6H PRN PRN Reason: migraine headache Stop: 10/10/22 13:04 Last Admin: 09/14/22 17:45 Dose: 600 mg [place] Carbonate ([place] Carbonate 450 Mg Tabcr) 450 mg PO BID [facility] Stop: 10/13/22 20:59 Last Admin: 09/17/22 21:59 Dose: 450 mg Lorazepam (Lorazepam 0.5 Mg Tab) 0.5 mg PO Q8 PRN PRN Reason: Anxiety Stop: 10/15/22 16:58 Last Admin: 09/17/22 10:38 Dose: 0.5 mg Magnesium Hydroxide (Magnesium Hydroxide Susp 30 Ml Udc) 30 ml PO DAILY PRN PRN Reason: Constipation Stop: 10/09/22 18:21 Miscellaneous (Remove Nicoderm Patch) 1 each N/A DAILY@2100 [facility] Stop: 10/12/22 20:59 Last Admin: 09/17/22 21:59 Dose: 1 each Nicotine (Nicotine 21 Mg/24 Hr Tdsy) 21 mg TD QAM [facility] Stop: 10/10/22 09:59 Last Admin: 09/17/22 09:32 Dose: 21 mg Nicotine Polacrilex (Nicotine Polacrilex 2 Mg Gum) 2 piece MT PRN PRN PRN Reason: cravings Stop: 10/10/22 09:30 Last Admin: 09/17/22 16:32 Dose: 2 piece Olanzapine (Olanzapine 2.5 Mg Tab) 2.5 mg PO HS [facility] Stop: 10/17/22 21:59 Last Admin: 09/17/22 21:58 Dose: 2.5 mg Oxcarbazepine (Oxcarbazepine 150 Mg Tablet) 450 mg PO BID [facility] Stop: 10/10/22 20:59 Last Admin: 09/17/22 21:59 Dose: 450 mg Propranolol HCl (Propranolol Hcl 10 Mg Tab) 30 mg PO BID [facility] Stop: 10/15/22 20:59 Last Admin: 09/17/22 21:59 Dose: 30 mg Sodium Chloride (Sodium Chloride 0.65% Na Soln 45 Ml ([place])) 1 - 2 sprays NA PRN PRN PRN Reason: Nasal Dryness/Congestion Stop: 10/09/22 18:21 Zinc Acetate/Diphenhydramine (Diphenhydramine 2%/Zinc 0.1% Cream 28gm Tube) 1 appln EXT BID PRN PRN Reason: rash on upper leg Stop: 10/10/22 12:17 Mental Health & Subst Abuse Tx Psychiatrist Name of Psychiatrist: [facility] Psychiatrist's Time of Appointment with Psychiatrist: to be connected to behavioral health services/psychiatry. Psychiatric Appointment Comment: [address] [place], [place] [address] [id number] Therapist Name of Therapist: Kendra Brown Therapist's Time of Therapist Appointment: 9:30 AM Therapy Appointment Comment: [address], [place] [address] Post Discharge Appointments Primary Care Physician Provider Appointment Comment: See walk-in clinic information to be connected to services.
[2022-09-18] MEDS: haloperidoL 5 MG TAB PO SCH ×2 (09:25→21:59)
[2022-09-18] MEDS: NICOTINE 21 MG/24 HR TDSY TD SCH (09:25)
[2022-09-18] MEDS: PROPRANOLOL HCL 10 MG TAB PO SCH ×2 (09:25→22:13)
[2022-09-18] MEDS: OXcarbazepine 150 MG TABLET PO SCH ×2 (09:25→21:59)
[2022-09-18] MEDS: LITHIUM CARBONATE 450 MG TABCR PO SCH ×2 (09:25→22:00)
[2022-09-18] MEDS ORDERED: HALOPERIDOL DECANOATE INJ 50 MG/ML VIAL IM ONE (11:34)
[2022-09-18] MEDS: LORazepam 0.5 MG TAB PO PRN (11:39)
[2022-09-18] MEDS: NICOTINE POLACRILEX 2 MG GUM MT PRN ×2 (12:30→15:40)
[2022-09-18] MEDS: haloperidoL 0.5 MG TAB PO PRN (17:06)
[2022-09-19] MEDS: PROPRANOLOL HCL 10 MG TAB PO SCH ×2 (08:37→20:33)
[2022-09-19] MEDS: NICOTINE 21 MG/24 HR TDSY TD SCH (08:37)
[2022-09-19] MEDS: OXcarbazepine 150 MG TABLET PO SCH ×2 (08:37→20:33)
[2022-09-19] MEDS: LITHIUM CARBONATE 450 MG TABCR PO SCH ×2 (08:37→20:33)
[2022-09-19] MEDS: haloperidoL 5 MG TAB PO SCH ×2 (08:37→20:33)
[2022-09-19] MEDS: BENZTROPINE MESYLATE 1 MG TAB PO PRN (09:59)
[2022-09-19] MEDS: NICOTINE POLACRILEX 2 MG GUM MT PRN ×3 (11:01→16:32)
[2022-09-19] MEDS: LORazepam 0.5 MG TAB PO PRN (13:18)
[2022-09-19] MEDS ORDERED: LORazepam 0.5 MG TAB PO PRN (15:44)
--- NOTE | 2022-09-19 15:52 | Psychiatric Progress Note ---
Date of Service September 19, 2022 Impression / Recommendations Impression 36 yo woman with a history of BPAD, anxiety and substance use who presented with psychosis following recent discharge from the [facility] and stopping risperidone due to side effects of rash. Diagnostically consistent with unspecified psychosis with broad differential including mixed vs manic episode of BPAD vs schizoaffective disorder vs substance-induced from cannabis vs bipolar depression with psychotic features. The patient is deemed unstable and requires psychiatric hospitalization for diagnostic clarification, safety and stabilization, medication management and development of further coping skills. MNPR due hx hypersexual behaviors, requires space away from peers at times as becomes easily overstimulated. 09/19/2022: ongoing slow but steady improvement, continues to sleep well and auditory hallucinations have resolved. Still with some intermittent anxiety but using meditation and movement to help with this. Cannot tolerate prolonged groups but appropriately excuses herself when she needs space or time alone. Denies SI. Nearing stability for discharge. (1) Schizoaffective disorder: (2) Cannabis use disorder, moderate, dependence: (3) PTSD (post-traumatic stress disorder): Plan 09/19/2022: Continue current medications and tx plan. Reduce ativan to daily prn. 09/18/2022: haldol decanoate 100mg IM today. Discontinue olanzapine. Continue with haldol po for overlap with goal of dose reduction in 1 week. 09/17/2022: Decrease olanzapine to 2.5mg qhs. Increase haldol to 5mg qAM and 10mg qHS. Consider haldol decanoate 100mg IM tomorrow. 09/16/2022: Decrease olanzapine to 7.5mg hs. Increase haldol to 5mg qAM and 7.5mg HS. 09/15/2022: has been receiving Haldol most ams plus additional prn so will make Haldol 5 mg BID standing and begin Zyprexa taper in preparation for conversion to LEÓN. Patient has positive response to Haldol and requests it specifically, despite her disorganization has some basic understanding of risks/benefits and could be converted to palperidone down the line as young and lower risk TD. [place] level ordered for 09/18/22. 09/13/2022: titrate [place] to previou dose of [place]sk[place] 450 mg BID. 09/12/2022: Zyprexa to 15 mg hs. 2.5 mg prn is not effective of Zyprexa nor is Hydroxyzine 25 mg so will offer Haldol 5 mg q6 prn instead. Monitor EPS, Cogentin if symptomatic. risks/benefits/alternatives reviewed re: [place], will start 300 mg BId today with plan to increase to 900 mg daily starting tomorrow if well tolerated. 09/11/2022: Increase olanzapine to 5mg qAM and 10 mg qhs with 2.5mg QID prn. 09/10/2022: The patient was admitted to the [facility] on q15 min checks (behavioral with suicide precautions) for safety. The patient will participate in group, recreational, and milieu therapies and will be offered additional individual and family sessions as clinically appropriate. -Continue tripleptal (will verify dose) and propranolol 20mg BID -Start olanzapine 5mg BID -Fasting lipid panel and glucose in the morning Inventory Assets Strengths: resilient, has housing, has outpatient therapy scheduled for next month Needs: medication management, safety and stabilization, increased coping skills, diagnostic clarification Suicide Risk Level Suicide Risk Level: Moderate (q15 min suicide checks) (depression/mixed mood with impulsivity with intermittent SI but no plan or intent. Agrees to alert nursing if SI intensifies, or if she feels unable to remain safe. ) Risk Factors Assessment : Yes Do You Have Access To A Gun?: No Mental Health Diagnoses: Yes Substance Use Disorders: Yes Previous Attempt: Yes Family History of Suicide: No Previous Psychiatric Hospitalization: Yes Protective Factors Assessment Responsible for Young Children: No Employed: No Stable Relationships: No Supportive Family: No Interval History Identifying Information SULY PAULA is a 36-year-old F who is currently lives at the [facility] in [place], has a history of depression, BPAD, PTSD, anxiety with panic attacks and substance use, and was admitted on 09/09/22 18:22 on a 201 voluntary commitment for mood changes, SI and confusion. Chief Complaint "I'm feeling less anxious". Review of Systems Sleep Information Total Hours of Sleep: 9 Meal Information Percent Meal Consumed - Breakfast: 100 Percent Meal Consumed - Lunch: 100 Percent Meal Consumed - Dinner: 90 Subjective Subjective Patient was seen & assessed and interval progress reviewed with treatment team nursing and social work. Using more non-pharmacologic coping strategies with encouragement. Feels her mood is a "little depressed" because she "thought the voices were spirits talking to me and now that they're gone I know they aren't". She is relieved that the voices are gone though. Feels when she gets very anxious she worries the voices may come back. Processed this. Eventually she would like to work on processing past trauma but agrees that her main focus for the next few months will be working on managing her anxiety and achieving more stability. Continues to find haldol helpful. Denies any side effects from this. Mild tremor, discussed likely from lithium, she does not find it bothersome. Physical Exam Psychiatric Orientation: alert and oriented x 3 Apperance: appropriately dressed and appropriately groomed Eye Contact: good eye contact Speech: normal rate/rhythm/volume of speech Affect: + anxious affect Mood: + anxious mood Thought Process: + circumstantial thought process Thought Content: reality based without delusions Suicidal Thoughts: denies suicidal thoughts Homicidal Thoughts: denies homicidal thoughts Hallucinations: no auditory hallucinations and no visual hallucinations Cognition: recent memory grossly intact, remote memory grossly intact, attention grossly intact and language grossly intact Estimated Intelligence: consistent with education level Insight: + limited insight Judgement: + limited judgement Vital Signs (Past 24 Hours) Last Vital Signs Temp 37.1 C 09/19/22 06:40 Pulse 98 H 09/19/22 06:41 Resp 16 09/19/22 06:40 BP 108/66 09/19/22 06:41 Pulse Ox 96 09/18/22 22:20 O2 Del Method 09/18/22 22:20 Results & Data ([facility]) Current Inpatient Medications Current Inpatient Medications: Current Inpatient Medications Acetaminophen (Acetaminophen 325 Mg Tab) 650 mg PO Q4H PRN PRN Reason: Headache or Minor Fever Stop: 10/09/22 18:21 Last Admin: 09/13/22 14:04 Dose: 650 mg Al Hydrox/Mg Hydrox/Simethicone (Aluminum/Magnesium Susp 30 Ml Udc) 30 ml PO Q4H PRN PRN Reason: GI Upset Stop: 10/09/22 18:21 Benztropine Mesylate (Benztropine Mesylate 1 Mg Tab) 1 mg PO Q6 PRN PRN Reason: Muscle Spasm Stop: 10/12/22 17:59 Last Admin: 09/19/22 09:59 Dose: 1 mg Bismuth Subsalicylate (Bismuth Subsalicylate Liqd 236 Ml) 15 ml PO PRN PRN PRN Reason: Loose Stool Stop: 10/09/22 18:21 Haloperidol (Haloperidol 0.5 Mg Tab) 2.5 mg PO BID PRN PRN Reason: Anxiety/Agitation Stop: 10/16/22 15:20 Last Admin: 09/18/22 17:06 Dose: 2.5 mg Haloperidol (Haloperidol 5 Mg Tab) 5 mg PO Q6 PRN PRN Reason: Agitation Stop: 10/12/22 12:59 Haloperidol (Haloperidol 5 Mg Tab) 5 mg PO QD@08 [facility] Stop: 10/17/22 07:59 Last Admin: 09/19/22 08:37 Dose: 5 mg Haloperidol (Haloperidol 5 Mg Tab) 10 mg PO HS WILLIAM Stop: 10/17/22 21:59 Last Admin: 09/18/22 21:59 Dose: 10 mg Hydroxyzine HCl (Hydroxyzine Hcl 25 Mg Tab) 50 mg PO HSZ PRN PRN Reason: Insomnia Stop: 10/09/22 18:21 Last Admin: 09/16/22 20:33 Dose: 50 mg Ibuprofen (Ibuprofen 600 Mg Tab) 600 mg PO Q6H PRN PRN Reason: migraine headache Stop: 10/10/22 13:04 Last Admin: 09/14/22 17:45 Dose: 600 mg [place] Carbonate ([place] Carbonate 450 Mg Tabcr) 450 mg PO BID [facility] Stop: 10/13/22 20:59 Last Admin: 09/19/22 08:37 Dose: 450 mg Lorazepam (Lorazepam 0.5 Mg Tab) 0.5 mg PO Q8 PRN PRN Reason: Anxiety Stop: 10/15/22 16:58 Last Admin: 09/19/22 13:18 Dose: 0.5 mg Magnesium Hydroxide (Magnesium Hydroxide Susp 30 Ml Udc) 30 ml PO DAILY PRN PRN Reason: Constipation Stop: 10/09/22 18:21 Miscellaneous (Remove Nicoderm Patch) 1 each N/A DAILY@2100 [facility] Stop: 10/12/22 20:59 Last Admin: 09/18/22 22:15 Dose: 1 each Nicotine (Nicotine 21 Mg/24 Hr Tdsy) 21 mg TD QAM [facility] Stop: 10/10/22 09:59 Last Admin: 09/19/22 08:37 Dose: 21 mg Nicotine Polacrilex (Nicotine Polacrilex 2 Mg Gum) 2 piece MT PRN PRN PRN Reason: cravings Stop: 10/10/22 09:30 Last Admin: 09/19/22 14:37 Dose: 2 piece Oxcarbazepine (Oxcarbazepine 150 Mg Tablet) 450 mg PO BID WILLIAM Stop: 10/10/22 20:59 Last Admin: 09/19/22 08:37 Dose: 450 mg Propranolol HCl (Propranolol Hcl 10 Mg Tab) 30 mg PO BID WILLIAM Stop: 10/15/22 20:59 Last Admin: 09/19/22 08:37 Dose: 30 mg Sodium Chloride (Sodium Chloride 0.65% Na Soln 45 Ml ([place])) 1 - 2 sprays NA PRN PRN PRN Reason: Nasal Dryness/Congestion Stop: 10/09/22 18:21 Zinc Acetate/Diphenhydramine (Diphenhydramine 2%/Zinc 0.1% Cream 28gm Tube) 1 appln EXT BID PRN PRN Reason: rash on upper leg Stop: 10/10/22 12:17 Mental Health & Subst Abuse Tx Psychiatrist Name of Psychiatrist: [facility] [place], [place] Psychiatrist's Time of Appointment with Psychiatrist: to be connected to behavioral health services/psychiatry. Psychiatric Appointment Comment: [address] [facility], [place] [id number] Therapist Name of Therapist: Kendra Brown Therapist's Time of Therapist Appointment: 9:30 AM Therapy Appointment Comment: [id number], [place] [address] Post Discharge Appointments Primary Care Physician Provider Appointment Comment: See walk-in clinic information to be connected to services. Contact Information Discharge
[2022-09-19] MEDS: ACETAMINOPHEN 325 MG TAB PO PRN (16:47)
[2022-09-20] MEDS ORDERED: DESTROY THIS MEDICATION ONE (07:44)
[2022-09-20] MEDS: NICOTINE 21 MG/24 HR TDSY TD SCH (08:23)
[2022-09-20] MEDS: LITHIUM CARBONATE 450 MG TABCR PO SCH (08:27)
[2022-09-20] MEDS: haloperidoL 5 MG TAB PO SCH (08:27)
[2022-09-20] MEDS: OXcarbazepine 150 MG TABLET PO SCH (08:29)
[2022-09-20] MEDS: PROPRANOLOL HCL 10 MG TAB PO SCH (08:29)
[2022-09-20] MEDS: BENZTROPINE MESYLATE 1 MG TAB PO PRN (08:30)
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
[2022-09-20] MEDS: NICOTINE POLACRILEX 2 MG GUM MT PRN ×2 (08:56→11:17)
[2022-09-20] MEDS: ACETAMINOPHEN 325 MG TAB PO PRN (13:18)
== END 2022-09-20 13:28 | disposition home or self-care (01) | DRG 885 ==
LOC: ED 12:59 → SUATTDRO 18:22 → 3S 18:22

== ENCOUNTER 2025-03-02 08:31 | Inpatient (IN) ==
--- NOTE | 2025-03-02 08:33 | Emergency Department Note ---
Impression & Plan UTI (urinary tract infection), Acute psychosis ED Provider Note NAME: SULY PAULA AGE: 39 SEX: F : 1985 ARRIVES VIA: Ambulance INFORMANT: Patient, case management ED PROVIDER(S): Mark Anthony Servin MD CHIEF COMPLAINT: Mental wellness concern MEDICAL DECISION MAKING: Patient presents due to concern for mental wellness concerns. Blood work was obtained. Patient was he medically cleared did receive some Ativan sublingually. Patient's urinalysis does show concern for UTI patient was ordered and scheduled Keflex. Patient did require mild sedative and did receive Ativan and Benadryl. 302 petition and upheld. 3 S. reviewing of assigned to Dr. Porter pending placement. Discussion w/ other healthcare providers: ED case management Prior /Outside records reviewed: None Differential diagnosis: Mood disorder, infection, hypoglycemia, electrolyte abnormalities, dehydration, medication side effect among others were considered. Diagnostics, as interpreted by me: ECG: None Medical decision rules: Suicide risk severity score Imaging studies: None HPI: Patient presents due to concern for mental wellness needs. Patient was recently seen overnight. The patient reportedly has a history of bipolar disorder is off medications and is concerned about the side effects that they may have been causing in the past. Patient is unwilling to cooperate with the majority of the history. Did not respond to questions about SI but denies HI or AVH. Patient did endorse using crack cocaine recently as she is homeless and was bored and depressed on the streets. Patient states that she is not a drug addict. Did not respond to questions about sleep or appetite. Patient also reports that she is concerned about the wellbeing of her children. Patient's children are reportedly in the care of others. PAST MEDICAL HISTORY: See Below PAST SURGICAL HISTORY: See Below SOCIAL HISTORY: See Below HOME MEDICATIONS: See Below ALLERGIES: See Below VITALS: See Below PHYSICAL EXAMINATION: GENERAL: NAD, non-toxic. Disheveled. EYE EXAM: Normal conjunctiva. PERRL, no anisocoria and EOM's grossly intact w/o pain. OROPHARYNX: Moist mucus membranes, grossly normal dentition. NECK: Trachea midline, no stridor. LUNGS: Clear to auscultation. Normal chest wall mechanics. HEART: NSR, no MRG. ABDOMEN: Abdomen soft, non-tender, no masses, no rebound or guarding. BACK: No CVA TTP. SKIN: No rashes and no bruising. UPPER EXTREMITIES: Upper extremities are grossly normal. Splint noted to the left upper extremity. LOWER EXTREMITIES: Grossly normal, no edema. NEURO EXAM: Awake and alert, follows commands, no obvious facial asymmetry, normal speech, moves all 4 extremities. Psych: Denies SI HI or AVH Past Med/Surg History Problem List (Updated 03/03/25 @ 08:34 by Mark Anthony Servin MD) Acute psychosis (Acute) UTI (urinary tract infection) (Acute) Crack cocaine use (Acute) Fracture of proximal phalanx of left little finger (Acute) Fracture of proximal phalanx of left ring finger (Acute) Hypokalemia (Acute) Noncompliance with medication regimen (Acute) Thought disorder (Acute) Schizoaffective disorder Cannabis use disorder, moderate, dependence Migraine (Acute) Generalized anxiety disorder (Acute) Abnormal Pap smear of cervix PTSD (post-traumatic stress disorder) (Acute) Bipolar disorder (Acute) Medical History Kanika Bipolar disorder No pertinent family history Anxiety Surgical History H/O cervical biopsy H/O wisdom tooth extraction History of section No pertinent past surgical history Family History Mother Breast cancer Denies family history of Ovarian cancer Prostate cancer Myocardial infarction Colorectal cancer Social History Smoking Status: Never smoker Tobacco Type: Cigarettes Second Hand Exposure: No; Do You Dip or Chew Tobacco: No; Hx Alcohol Use: No Hx Substance Use: No Preferred Language: Kyrgyz Communication Ability: Effective Visual Impairment: No Limitations Hearing Ability: Normal Jewel Waxer Required: No Beliefs That Will Affect Care: None marital status: Single Current Living Situation: Homeless Current Living Situation Comment: Currently living in half-way current occupational status: disabled How many Children do You have: 2 Feels Safe at Home: Yes Childhood Exposure to Second-Hand Smoke: No Diet: other Diet Comment: Organic Diet Dental Care, Regularly: No Physical Activity Frequency: 3-4 Times per Week Seatbelt Use: always Sunscreen Use: Yes Gender Identity: Female Assistive Devices: Contacts Allergies Allergies Allergy/AdvReac Type Severity Reaction Status Date / Time risperidone Allergy Severe FULL BODY Verified 03/03/23 22:12 "TIC" Home Meds Home Medications Medication Instructions Recorded Confirmed No Known Home Medications 03/29/24 03/02/25 Results & Data (ED) Vital Signs Vital Signs - 24 hr 03/02/25 08:47 Temperature 36.6 C Temperature Source Oral Pulse Rate 88 Respiratory Rate 18 Respiratory Effort / Characteristics Non-Labored Spontaneous Respiratory Depth Normal Respiratory Pattern Regular Blood Pressure 136/87 Blood Pressure Mean 103 Pulse Oximetry 97 Oxygen Delivery Method Room Air Sepsis Recent Fever Within 48 Hours No Sepsis New/Unexplained Change in Mental Status No Sepsis Action Taken by Nursing No Action Required Home Medications Current Medication List: was personally reviewed by me Laboratory Data Attestation: I reviewed the patient's lab results. 03/02/25 08:49 03/02/25 08:49 Lab Results 03/02/25 03/02/25 Range/Units 08:49 09:15 WBC 9.08 (4.8-10.8) K/ul RBC 3.92 L (4.20-5.40) M/uL Hgb 11.8 L (12.0-16.0) g/dl Hct 35.2 L (37.0-47.0) % MCV 89.8 (80.0-100.0) fL MCH 30.1 (25.0-34.0) pg MCHC 33.5 (32.0-36.0) g/dL RDW Std Deviation 44.1 (36.4-46.3) fL RDW Coeff of Yuniel 13.4 (11.5-14.5) % Plt Count 319 (130-400) K/uL MPV 10.4 (9.4-12.4) fL Immature Gran % (Auto) 0.6 % Neut % (Auto) 60.7 % Lymph % (Auto) 25.8 % [place] % (Auto) 10.2 % Eos % (Auto) 1.9 % Baso % (Auto) 0.8 % Neut # (Auto) 5.52 (1.40-6.50) K/uL Lymph # (Auto) 2.34 (1.20-3.40) K/uL [place] # (Auto) 0.93 H (0.11-0.59) K/uL Eos # (Auto) 0.17 (0.00-0.50) K/uL Baso # (Auto) 0.07 (0.00-0.20) K/uL Immature Gran # (Auto) 0.05 (0.01-0.20) K/uL Sodium 138 (136-145) mmol/L Potassium 3.8 D (3.5-5.1) mmol/L Chloride 107 (98-107) mmol/L Carbon Dioxide 23 (21-32) mmol/L Anion Gap 8 (3-11) BUN 14 (6-23) mg/dl Creatinine 0.62 (0.6-1.2) mg/dl Est Cr Clr Drug Dosing 123.6 ml/min eGFR 117.55 BUN/Creatinine Ratio 22.6 H (10-20) Glucose 95 (70-99(Fasting)) mg/dl Calcium 9.2 (8.6-10.3) mg/dl Total Bilirubin 0.4 (0.2-1.0) mg/dl AST 22 (13-39) U/L ALT 14 (7-52) U/L Alkaline Phosphatase 70 (34-104) U/L Total Protein 6.7 (6.0-8.3) gm/dl Albumin 4.2 (3.4-5.0) gm/dl Globulin 2.5 (2.5-4.0) gm/dl Albumin/Globulin Ratio 1.7 (0.9-2) TSH 2.204 (0.300-4.500) uIu/ml Urine Color Yellow Urine Appearance Clear (Clear) Urine pH 7.0 (4.5-7.5) Ur Specific [place] 1.014 (1.000-1.030) Urine Protein Negative (Negative) Urine Glucose (UA) Negative (Negative) Urine Ketones Negative (Negative) Urine Blood Negative (Negative) Urine Nitrite Positive A (Negative) Urine Bilirubin Negative (Negative) Urine Urobilinogen Negative (Negative) Ur Leukocyte Esterase Trace H (Negative) Urine WBC (Auto) 6-10 H (0-5) /hpf Urine RBC (Auto) 0-2 (0-2) /hpf U Hyaline Cast (Auto) 0-2 (0-2) /lpf U Epithel Cells (Auto) 0-2 (0-2) /hpf Urine Bacteria (Auto) 4+ H (None Seen) Urine Test Negative (Negative) Urine Comment Salicylates < 3.0 L (3.0-30) mg/dl Urine Opiates Screen Neg (Neg) Ur Methadone, Qual Neg (Neg) Urine Fentanyl Screen Neg (Neg) Acetaminophen < 3 L (10-30) ug/ml Urine Barbiturates Neg (Neg) Ur Phencyclidine (PCP) Neg (Neg) U Amphetamin/Meth Scrn Neg (Neg) MDMA (Ecstasy) Screen Neg (Neg) U Benzodiazepines Scrn Neg (Neg) Ur Cocaine Metabolite Pos H (Neg) U Marijuana (THC) Screen Neg (Neg) Ethyl Alcohol mg/dL < 10.0 (<10.0) mg/dl SARS-CoV-2, RNA, NAAT NEGATIVE (NEGATIVE) Administered Medications Miscellaneous (Remove Nicoderm Patch) 1 each N/A DAILY@0859 [facility] Stop: 04/01/25 18:28 Last Admin: 03/02/25 21:11 Dose: Not Given Documented By: ANGEL Nicotine (Nicotine 21 Mg/24 Hr Tdsy) 1 patch TD QAM [facility] Stop: 04/01/25 18:29 Last Admin: 03/03/25 01:01 Dose: Not Given Documented By: ANGEL Discontinued Medications Cephalexin HCl (Cephalexin 250 Mg Cap) 500 mg PO NOW ONE Stop: 03/02/25 10:53 Last Admin: 03/02/25 10:59 Dose: 500 mg Documented By: LUIS ENRIQUE Diphenhydramine HCl (Diphenhydramine 50 Mg/Ml Vial) Confirm Administered Dose 50 mg .ROUTE .STK-MED ONE Stop: 03/02/25 09:47 Last Admin: 03/02/25 09:52 Dose: Not Given Documented By: CANDIS Diphenhydramine HCl (Diphenhydramine 50 Mg/Ml Vial) 50 mg IM NOW STA Stop: 03/02/25 09:49 Last Admin: 03/02/25 09:51 Dose: 50 mg Documented By: CANDIS Haloperidol Lactate (Haloperidol Lactate 5 Mg/Ml 1 Ml Vial) 5 mg IM ONE PRN PRN Reason: Agitation Stop: 04/01/25 11:27 Last Admin: 03/02/25 11:36 Dose: 5 mg Documented By: LUIS ENRIQUE Lorazepam (Lorazepam 1 Mg Tab) 1 mg SL NOW STA Stop: 03/02/25 08:50 Last Admin: 03/02/25 08:54 Dose: 1 mg Documented By: HENRY Lorazepam (Lorazepam 2 Mg/1 Ml Vial) Confirm Administered Dose 2 mg .ROUTE .STK- MED ONE Stop: 03/02/25 09:47 Last Admin: 03/02/25 09:51 Dose: Not Given Documented By: CANDIS Lorazepam (Lorazepam 2 Mg/1 Ml Vial) 2 mg IM NOW STA Stop: 03/02/25 09:49 Last Admin: 03/02/25 09:51 Dose: 2 mg Documented By: CANDIS Lorazepam (Lorazepam 1 Mg Tab) 2 mg SL NOW STA Stop: 03/02/25 12:17 Last Admin: 03/02/25 12:18 Dose: 2 mg Documented By: HENRY Lorazepam (Lorazepam 1 Mg Tab) 2 mg SL NOW STA Stop: 03/02/25 14:10 Last Admin: 03/02/25 14:13 Dose: 2 mg Documented By: LUIS ENRIQUE Olanzapine (Olanzapine 5 Mg Tablet) [facility] [place] Stop: 04/01/25 16:44 Last Admin: 03/02/25 17:04 Dose: 5 mg Documented By: LUIS ENRIQUE Discharge Plan Visit Data Chief Complaint: Mental Health Evaluation Stated Complaint: [facility] ED Provider: Lloyd Porter Discharge Problem: UTI (urinary tract infection), Acute psychosis Patient Disposition: Admitted As Inpatient Condition: Good Discharge Instructions Interventions: ED Discharge Assessment Last Done: 03/02/25 17:19 Discharge Problem: UTI (urinary tract infection) Qualifiers: Urinary tract infection type: site unspecified Hematuria presence: without hematuria Qualified Code(s): N39.0 - Urinary tract infection, site not specified
[2025-03-02] MEDS: LORazepam 1 MG TAB SL STA ×3 (08:54→14:13)
[2025-03-02 09:09] LABS: Basophils # (auto) 0.07 K/uL (0.00-0.20); Basophils % (auto) 0.8 %; Eosinophils # (auto) 0.17 K/uL (0.00-0.50); Eosinophils % (auto) 1.9 %; Hematocrit (blood only) 35.2 % (37.0-47.0); Hemoglobin 11.8 g/dl (12.0-16.0); Immature Granulocytes # (auto) 0.05 K/uL (0.01-0.20); Immature Granulocytes % (auto) 0.6 %; Lymphocytes # (auto) 2.34 K/uL (1.20-3.40); Lymphocytes % (auto) 25.8 %; Mean Corpuscular Hemoglobin 30.1 pg (25.0-34.0); Mean Corpuscular Hgb Conc 33.5 g/dL (32.0-36.0); Mean Corpuscular Volume 89.8 fL (80.0-100.0); Mean Platelet Volume 10.4 fL (9.4-12.4); Monocytes # (auto) 0.93 K/uL (0.11-0.59); Monocytes % (auto) 10.2 %; Neutrophils # (auto) 5.52 K/uL (1.40-6.50); Neutrophils % (auto) 60.7 %; Platelet Count 319 K/uL (130-400); RDW Coefficient of Variation 13.4 % (11.5-14.5); RDW Standard Deviation 44.1 fL (36.4-46.3); Red Blood Count 3.92 M/uL (4.20-5.40); White Blood Count 9.08 K/ul (4.8-10.8)
[2025-03-02 09:22] LABS: Acetaminophen < 3 ug/ml (10-30); Salicylate < 3.0 mg/dl (3.0-30)
[2025-03-02 09:23] LABS: Albumin Globulin Ratio 1.7 (0.9-2); BUN Creatinine Ratio 22.6 (10-20); Bilirubin,Total 0.4 mg/dl (0.2-1.0); Calcium 9.2 mg/dl (8.6-10.3); Creatinine Clr Calc Pharmacy 123.6 ml/min; Globulin 2.5 gm/dl (2.5-4.0); Potassium 3.8 mmol/L (3.5-5.1); Total Protein 6.7 gm/dl (6.0-8.3)
[2025-03-02 09:34] LABS: Pregnancy Test, Urine Negative (Negative)
[2025-03-02 09:35] LABS: Appearance Urine Clear (Clear); Bacteria Urine Automated 4+ (None Seen); Bilirubin Urine Negative (Negative); Blood Urine Negative (Negative); Cast Urine Automated 0-2 /lpf (0-2); Color Urine Yellow; Epithelial Cell Urine Auto 0-2 /hpf (0-2); Glucose Urine UA Negative (Negative); Ketones Urine Negative (Negative); Leukocyte Esterase Urine Trace (Negative); Nitrite Urine Positive (Negative); Protein Urine Negative (Negative); RBC Urine Automated 0-2 /hpf (0-2); Specific Gravity Urine 1.014 (1.000-1.030); Urobilinogen Urine Negative (Negative)
[2025-03-02 09:37] LABS: Thyroid Stimulating Hormone 2.204 uIu/ml (0.300-4.500)
[2025-03-02] MEDS: LORazepam 2 MG/1 ML VIAL IM STA (09:51)
[2025-03-02] MEDS: diphenhydrAMINE 50 MG/ML VIAL IM STA (09:51)
[2025-03-02] MEDS: LORazepam 2 MG/1 ML VIAL ONE (09:51)
[2025-03-02] MEDS: diphenhydrAMINE 50 MG/ML VIAL ONE (09:52)
[2025-03-02 10:24] LABS: Amphetamines+Metham, Urine Neg (Neg); Barbiturates, Urine Neg (Neg); Benzodiazepine, Urine Neg (Neg); Cocaine, Urine Pos (Neg); Fentanyl, Urine Neg (Neg); MDMA (Ecstacy), Urine Neg (Neg); Marijuana, Urine Neg (Neg); Methadone, Urine Neg (Neg); Opiate, Urine Neg (Neg); Phencyclidine, Urine Neg (Neg)
[2025-03-02] MEDS: cephALEXin 250 MG CAP PO ONE (10:59)
[2025-03-02] MEDS: HALOPERIDOL LACTATE 5 MG/ML 1 ML VIAL IM PRN (11:36)
--- NOTE | 2025-03-02 13:24 | Emergency Department Note ---
ED Visit Note Patient is a 34-year-old female acutely psychotic with history of bipolar signed out to me medically cleared by Dr. Servni. Currently being treated for UTI on Keflex. Referral has been made to 3 S. patient has been denied due to splint. Spoke with our psychiatric palliative care physician. Does not believe patient will be placed anywhere secondary to the splint. Discussed with hospitalist for further evaluation management and treatment as patient is a 302 and patient has been declined from 3 S. due to orthopedic device. Patient was accepted to the hospitalist. Patient was given 2 mg of Ativan for agitation which she took willingly. .
--- NOTE | 2025-03-02 15:00 | History & Physical Report ---
Date of Service March 02, 2025 Assessment & Plan (1) Thought disorder: (2) Fracture of proximal phalanx of left little finger: (3) Fracture of proximal phalanx of left ring finger: (4) Bipolar disorder: Plan #302carries diagnoses of bipolar, ADHD, is currently under 302psychiatry will be consulted to help assist with med management, and the psychiatry team will be working on finding her an inpatient psychiatry bed. #Fracture of 4th and 5th phalanxcurrently in a splint. Discussed with orthopedics and will be consulting for assistance in management #abnormal urinalysisno symptoms. No need for further antibiotics. Appears to be asymptomatic bacteriuria (extremely common) #DVT prophylaxisambulation History of Present Illness Chief Complaint: Initial presenting chief complaints were hallucinations and left hand pain Primary Care Provider: NO PCP Mental health assessment yielded patient to be delusional, under 302. Psychiatry working for inpatient psych placement, but has been unable to get a bed. She also has a hand fracture due to a fall. She denies significant pain. Mostly she wants help with her mental health issues and notes that she has a really hard time concentrating and feels like her meds need to be sorted out better. she also denies any urinary symptoms (no pain or burning or urgency no urinary symptoms at all) Allergies Allergy/AdvReac Type Severity Reaction Status Date / Time risperidone Allergy Severe FULL BODY Verified 03/03/23 22:12 "TIC" Home Medications Medication Instructions Recorded Confirmed Type No Known Home Medications 03/29/24 03/02/25 History Past Med/Surg History Problem List Crack cocaine use (Acute) Fracture of proximal phalanx of left little finger (Acute) Fracture of proximal phalanx of left ring finger (Acute) Hypokalemia (Acute) Noncompliance with medication regimen (Acute) Thought disorder (Acute) Schizoaffective disorder Cannabis use disorder, moderate, dependence Migraine (Acute) Generalized anxiety disorder (Acute) Abnormal Pap smear of cervix PTSD (post-traumatic stress disorder) (Acute) Bipolar disorder (Acute) Medical History Kanika Bipolar disorder No pertinent family history Anxiety Surgical History H/O cervical biopsy H/O wisdom tooth extraction History of section No pertinent past surgical history Family History Mother Breast cancer Denies family history of Ovarian cancer Prostate cancer Myocardial infarction Colorectal cancer Social History Smoking Status: Unknown if ever smoked Tobacco Type: Cigarettes Second Hand Exposure: No; Do You Dip or Chew Tobacco: No; Hx Alcohol Use: No Hx Substance Use: No Preferred Language: Thai Communication Ability: Effective Visual Impairment: No Limitations Hearing Ability: Normal Dairy Nutritionist Required: No Beliefs That Will Affect Care: None marital status: Single Current Living Situation: Homeless Current Living Situation Comment: Currently living in longterm current occupational status: disabled How many Children do You have: 2 Feels Safe at Home: Declines to Answer Childhood Exposure to Second-Hand Smoke: No Diet: other Diet Comment: Organic Diet Dental Care, Regularly: No Physical Activity Frequency: 3-4 Times per Week Seatbelt Use: always Sunscreen Use: Yes Gender Identity: Female Assistive Devices: Glasses Review of Systems Review of Systems: All systems reviewed & are unremarkable except as noted in HPI & below Physical Exam Physical Exam: awake and alert, pleasant but very anxious with pressured speech and a little bit of a visible tremor. No physical or respiratory distress. HEENT normocephalic atraumatic mucous membranes moist. Breathing unlabored no accessory muscle use no conversational dyspnea good spontaneous effort. Left wrist is in a splint and wrapped. Gait is normal. Neuro shows cranial nerves II through XII are grossly intact gross motor and sensory are intact. Mental status shows her to be very anxious with pressured speech, but she is willing for inpatient care. Results & Data Results & Data Vital Signs (Past 12 Hours) Vital Signs Temp Pulse Resp BP Pulse Ox O2 Del Method 03/02/25 08:47 97.9 F 88 18 136/87 97 Room Air Code Status & VTE Plan VTE Prophylaxis Plan VTE Prophylaxis will be ordered: No Reason for no VTE drug order: Treatment not indicated PG Care Time/CCT Total # of Minutes Spent Total Time Spent with Patient: Total time spent is greater than 50% in coordination of care (as documented) at patient's floor/unit and/or counseling patient: Coding Level of Care Code 41743 INT INP/OBS CARE 3/75MIN Diagnoses Thought disorder R41.89 Fracture of proximal phalanx of left little finger S62.617A Fracture of proximal phalanx of left ring finger S62.615A Bipolar disorder F31.9
[2025-03-02] MEDS: OLANZapine 5 MG TABLET PO SCH (17:04)
[2025-03-02] MEDS ORDERED: POLYETHYLENE (MIRALAX) 17 GM PACK PO PRN (17:39)
[2025-03-02] MEDS ORDERED: HALOPERIDOL LACTATE 5 MG/ML 1 ML VIAL IM PRN (17:39)
[2025-03-02] MEDS ORDERED: ALUMINUM/MAGNESIUM SUSP 30 ML UDC PO PRN (17:39)
[2025-03-02] MEDS ORDERED: ACETAMINOPHEN 325 MG TAB PO PRN (17:39)
[2025-03-02] MEDS ORDERED: ONDANSETRON INJ 2 MG/ML 2 ML VIAL IV PRN (17:39)
[2025-03-02] MEDS ORDERED: MAGNESIUM HYDROXIDE SUSP 30 ML UDC PO PRN (17:39)
[2025-03-02] MEDS ORDERED: MELATONIN 3 MG TAB PO PRN (17:39)
[2025-03-02 17:50] VITALS: RESP 18
--- NOTE | 2025-03-02 17:52 | Orthopedic Consultation ---
Date of Service March 02, 2025 Assessment & Plan (1) Fracture of proximal phalanx of left little finger: 39-year-old female with underlying psychiatric issues and substance abuse several days out from left hand injury with some minimally angulated 4th and 5th proximal phalanx fractures. She is already in a splint and comfortable in that. Plan: At this point we will leave her splint in place. These fractures take about 4 weeks to heal. Will leave her in the splint for the first week or 2. She may need's changed out to a cast in the future. Will do that in a week or 2 if needed. She can use her hand otherwise as tolerated within the limits of the splint. Any questions can be directed me at [phone]. Orthopedic follow-up anywhere from 2 to 4 weeks. If the splint stays in place without problems she can follow-up in 4 weeks. If it is getting disheveled we will change that in 2 weeks. (2) Fracture of proximal phalanx of left ring finger: (3) Crack cocaine use: (4) Schizoaffective disorder: (5) Thought disorder: History of Present Illness Reason for Consultation: . Left 4th and 5th finger proximal phalanx fractures Requesting Physician: . Attending Physician: Lloyd Birch DO . The patient is a 39-year-old female being admitted for psychiatric reasons. She reports a history of a left hand injury several days ago. She sustained this from a fall. She presented to the emergency room today with psychiatric issues and being admitted. She denies any other injuries. She is in a splint currently. Exact details of the fall were unexplained. Once again this happened several days ago. Allergies Allergy/AdvReac Type Severity Reaction Status Date / Time risperidone Allergy Severe FULL BODY Verified 03/03/23 22:12 "TIC" Home Medications Medication Instructions Recorded Confirmed Type No Known Home Medications 03/29/24 03/02/25 History Past Med/Surg History Problem List Crack cocaine use (Acute) Fracture of proximal phalanx of left little finger (Acute) Fracture of proximal phalanx of left ring finger (Acute) Hypokalemia (Acute) Noncompliance with medication regimen (Acute) Thought disorder (Acute) Schizoaffective disorder Cannabis use disorder, moderate, dependence Migraine (Acute) Generalized anxiety disorder (Acute) Abnormal Pap smear of cervix PTSD (post-traumatic stress disorder) (Acute) Bipolar disorder (Acute) Medical History Kanika Bipolar disorder No pertinent family history Anxiety Surgical History H/O cervical biopsy H/O wisdom tooth extraction History of section No pertinent past surgical history Family History Mother Breast cancer Denies family history of Ovarian cancer Prostate cancer Myocardial infarction Colorectal cancer Social History Smoking Status: Unknown if ever smoked Tobacco Type: Cigarettes Second Hand Exposure: No; Do You Dip or Chew Tobacco: No; Hx Alcohol Use: No Hx Substance Use: No Preferred Language: Ivorian Communication Ability: Effective Visual Impairment: No Limitations Hearing Ability: Normal 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 Beliefs That Will Affect Care: None marital status: Single Current Living Situation: Homeless Current Living Situation Comment: Currently living in nursing home current occupational status: disabled How many Children do You have: 2 Feels Safe at Home: Declines to Answer Childhood Exposure to Second-Hand Smoke: No Diet: other Diet Comment: Organic Diet Dental Care, Regularly: No Physical Activity Frequency: 3-4 Times per Week Seatbelt Use: always Sunscreen Use: Yes Gender Identity: Female Assistive Devices: Glasses Review of Systems All systems reviewed & are unremarkable except as noted in HPI & below. Physical Exam . Physical examination was a pleasant somewhat anxious somewhat trepidations female who was walking around the room. She is got an ulnar gutter splint in place. She is got some moderate bruising of the fingertips. The fingers look well aligned. There is no rotational deformity. She is neurologically intact. Results & Data Results & Data Laboratory Results . Diagnostic Findings . X-rays left hand were reviewed. It shows fairly minimally angulated nondisplaced proximal phalanx fractures of the 4th and 5th fingers. No other signs of problems. PG Care Time/CCT Total # of Minutes Spent Total Time Spent with Patient: Total time spent is greater than 50% in coordination of care (as documented) at patient's floor/unit and/or counseling patient: Coding Level of Care Code 99440 IN/OBS CONSULT LVL 3,45M (57 - DECISION FOR SURGERY) Diagnoses Fracture of proximal phalanx of left little finger S62.617A Fracture of proximal phalanx of left ring finger S62.615A Crack cocaine use F14.90 Schizoaffective disorder F25.9 Thought disorder R41.89
[2025-03-02] MEDS ORDERED: NICOTINE POLACRILEX 2 MG GUM MT PRN (18:21)
[2025-03-02] MEDS ORDERED: cephALEXin 500 MG CAP PO SCH (21:00)
[2025-03-03] MEDS: NICOTINE 21 MG/24 HR TDSY TD SCH (01:01)
[2025-03-03 07:04] VITALS: BP 148/98; PULSE 110; TEMP 98.1; O2SAT 97
--- NOTE | 2025-03-03 11:21 | Psychiatric Consultation ---
Date of Consultation March 03, 2025 Impression / Recommendations Impression Diagnostically consistent with unspecified psychosis with differential including episode of isabela with psychosis from BPAD vs primary psychotic disorder vs substance-induced given recent cocaine use (and UDS positive for cocaine). Guarded with thought blocking, psychomotor agitation and seems to be responding to internal stimuli with poor sleep and recent hyperreligious beliefs. Disorganized to the point of new wrist fracture. She consents to restarting previously prescribed Depakote for mood stabilization and buspar for anxiety. She could not tolerate discussion of risks/benefits but did ask for and agree to taking these medications. Baseline labs of CBC with diff, LFTs, electrolytes, UPT, and weight were reviewed. Will start with Depakote ER loading dose of 1000mg. Overall, I spent a total of 80 minutes with this case including review of chart records, review of labwork, direct evaluation of the patient at bedside, counseling the patient, discussion of the patient with the Nurse and with the hospitalist provider, discussion with the psychiatric liason during clinical rounds, and documentation in the electronic health record. (1) Acute psychosis: (2) Crack cocaine use: (3) Fracture of proximal phalanx of left little finger: (4) Fracture of proximal phalanx of left ring finger: Plan -Continue 1-on-1 as she remains on a 302 commitment, cannot leave AMA -Plan for inpatient psychiatry admission later today once she has a cast as her current BHANU bandage wrap remains a high ligature risk -She consents to starting Depakote ER 500mg x1 now and then 500mg at HS and Buspar 5mg TID po -For behavioral emergency would use: ativan 2mg IM and haldol 5mg IM (Do not exceed 20mg of haldol in 24 hours) Psych History Identifying Data Deb Butler is a 39 yo woman with a history of polysubstance use disorder, bipolar affective disorder, anxiety and self-reported ADHD admitted medically due to new wrist fracture and on a 302 commitment for psychosis with disorganized behaviors. Psychiatry consulted for 302 and bipolar disorder recommendations. Chief Complaint "I have ADHD, I need Adderall". History of Present Illness Deb is known to the consult service from previous inpatient psychiatry admission in August 2022 for isabela and psychosis. She was ultimately stabilized on Haldol decanoate 100 mg long-acting injectable and lithium. Following that hospitalization she returned to the [place] area with a close friend. She represented to the emergency department initially in the store leader hours on 03/02/2025 reporting left hand pain and found to have a fracture in the hand. She refused inpatient psychiatric treatment at that time and asked to be discharged only to return a few hours later via ambulance at which time she was initially requesting help but then became unwilling to participate with assessment and demonstrated significant psychiatric symptoms concerning for inability to meet her self-care needs resulting in 302 commitment. In the emergency department she endorsed recent use of cocaine and was very restless and irritable resulting in IM Ativan and IM Haldol doses. While in the emergency department she was noted to be delusional, she endorsed significant difficulty sleeping, was religiously preoccupied and demonstrated significant psychomotor agitation. She was medically admitted due to splint with Bhanu bandage that could not be accommodated on inpatient psychiatry due to ligature risk. She is agreeable with plan to get a cast today. Focused on her desire to get over to the inpatient psychiatric unit as she feels trapped in her room. States she used cocaine a few times over the last couple of days citing this was "I did it because I was depressed". However a few moments later denies to me that she has been depressed and denies that she could be in an episode of isabela. Rather states she has been in an episode of high stress due to just being in an inpatient psychiatric hospital setting in [place] and feeling that they "overloaded me" on medications. She identifies the medication she was on as the reason that she was hearing voices. At times during our discussion she seems to be responding to internal stimuli, stares intensely and has episodes of thought blocking. She is fixated on being restarted on her Adderall stating the reason she is having these bizarre pauses in conversation is because she cannot concentrate without it. She is unwilling to talk about where she was living or what was happening in [place] stating "this is where I live I am homeless I am here now". Tells me she is willing to restart Depakote for her mood and BuSpar. She denies any current thoughts of suicide. Further psychiatric review of symptoms limited due to her level of thought blocking and internal stimuli. Past Psychiatric History Current Psychiatric Diagnosis: Bipolar, depression, anxiety, schizoaffective History of Previous Suicide Attempt: No Allergies Allergy/AdvReac Type Severity Reaction Status Date / Time risperidone Allergy Severe FULL BODY Verified 03/03/23 22:12 "TIC" Home Medications Medication Instructions Recorded Confirmed Type No Known Home Medications 03/29/24 03/02/25 History Patient History Medical History Isabela Bipolar disorder No pertinent family history Anxiety Surgical History H/O cervical biopsy H/O wisdom tooth extraction History of section No pertinent past surgical history Family History Mother Breast cancer Denies family history of Ovarian cancer Prostate cancer Myocardial infarction Colorectal cancer Social History Smoking Status: Never smoker Tobacco Type: Cigarettes Second Hand Exposure: No; Do You Dip or Chew Tobacco: No; Hx Alcohol Use: No Hx Substance Use: No Preferred Language: Italian Communication Ability: Effective Visual Impairment: No Limitations Hearing Ability: Normal Powertrain 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 Required: No Beliefs That Will Affect Care: None marital status: Single Current Living Situation: Homeless Current Living Situation Comment: Currently living in care home current occupational status: disabled How many Children do You have: 2 Feels Safe at Home: Yes Childhood Exposure to Second-Hand Smoke: No Diet: other Diet Comment: Organic Diet Dental Care, Regularly: No Physical Activity Frequency: 3-4 Times per Week Seatbelt Use: always Sunscreen Use: Yes Gender Identity: Female Assistive Devices: Contacts Physical Exam Psychiatric: Orientation: alert and oriented x 3 Apperance: + disheveled Eye Contact: good eye contact (intense, bizarre ) Motor Behavior: + psychomotor agitation Speech: + abnormal rate/rhythm/volume of speech (halting at times) Affect: + flat affect, + labile affect and + irritable affect Mood: + anxious mood and + irritable mood Thought Process: + thought blocking and + tangential thought process Thought Content: + paranoid Suicidal Thoughts: denies suicidal thoughts Homicidal Thoughts: denies homicidal thoughts Hallucinations: + auditory hallucinations Insight: + poor insight Judgment: + limited judgement Vital Signs (Past 24 Hours): Last Vital Signs Temp 36.7 C 03/03/25 07:03 Pulse 110 H 03/03/25 07:03 Resp 18 03/03/25 07:03 BP 148/98 H 03/03/25 07:03 Pulse Ox 97 03/03/25 07:03 O2 Del Method Room Air 03/03/25 07:03 Results & Data (PSY) Medications Administered Miscellaneous (Remove Nicoderm Patch) 1 each N/A DAILY@0859 [facility] Stop: 04/01/25 18:28 Last Admin: 03/03/25 08:59 Dose: Not Given Documented By: Admin: 03/02/25 21:11 Dose: Not Given Documented By: ANGEL Nicotine (Nicotine 21 Mg/24 Hr Tdsy) 1 patch TD QAM [facility] Stop: 04/01/25 18:29 Last Admin: 03/03/25 08:59 Dose: Not Given Documented By: Admin: 03/03/25 01:01 Dose: Not Given Documented By: ANGEL Coding Level of Care Code 67104 IN/OBS CONSULT LVL 5,80M Diagnoses Acute psychosis F23 Crack cocaine use F14.90 Fracture of proximal phalanx of left little finger S62.617A Fracture of proximal phalanx of left ring finger S62.611F
[2025-03-03] MEDS: LORazepam 1 MG TAB PO PRN (11:48)
--- NOTE | 2025-03-03 12:26 | Procedure Note ---
Procedure Note Date of Service March 03, 2025 Application of left ulnar gutter cast per provider instructions. Ulnar gutter splint removed and skin inspected. Underlying ecchymosis and mild edema but no open lesions or other evidence of skin breakdown. Stockinette and cast padding applied from mid forearm through wrist, hand, left 4th and 5th fingers. Combination of 2 and 3 inch Fiberglass cast material was then applied to the fingers, hand, wrist and forearm. Cast was then molded with wrist in slight ex tension, 4th and 5th fingers in slight flexion. Once cast was applied neurovascular exam was performed. Brisk capillary refill to all 5 fingertips, able to move fingers 1 through 3 without impingement or discomfort. Instruction provided, please contact Ortho team with new onset tingling or numbness, pressure points, or skin breakdown from cast material. Coding Additional Codes Date of Service ([facility].SURGERY)
[2025-03-03] MEDS: DIVALPROEX EXTENDED RELEASE 500 MG TAB PO SCH (12:57)
[2025-03-03] MEDS: busPIRone 5 MG TAB PO SCH (12:57)
--- NOTE | 2025-03-03 13:03 | Discharge Summary ---
Discharge Summary Date of Service March 03, 2025 Principal Dx & Hospital Course #1 = Principal Diagnosis (1) Thought disorder: (2) Fracture of proximal phalanx of left little finger: (3) Fracture of proximal phalanx of left ring finger: (4) Bipolar disorder: Plan This is a 39-year-old female with past medical history of schizoaffective disorder, cannabis use disorder, PTSD, bipolar who presented to the emergency department on 03/02/2025 for hallucinations and left hand pain. #Fracture of 4th/5th phalanx Left hand x-ray 03/02comminuted impacted fracture at the base/proximal head of the 4th and 5th proximal phalanx with mild dorsal angulation. Overlying significant soft tissue swelling Orthopedics consultedcast applied 03/03recommending to follow-up outpatient in 2 weeks #Bipolar disorder Currently under 302 commitment, cannot leave AMA Drug screen positive for cocaine Continue one-to-one Psychiatry consultedstarting Jayden She is to go to the behavioral health unit upon discharge Admission HPI Per Admitting Provider Mental health assessment yielded patient to be delusional, under 302. Psychiatry working for inpatient psych placement, but has been unable to get a bed. She also has a hand fracture due to a fall. She denies significant pain. Mostly she wants help with her mental health issues and notes that she has a really hard time concentrating and feels like her meds need to be sorted out better. she also denies any urinary symptoms (no pain or burning or urgency no urinary symptoms at all) Discharge Exam General: no acute distress; non-toxic appearing; well-nourished; cooperative HEENT: normocephalic, atraumatic; no scleral icterus; PERRLA w/ EOMs intact; vision and hearing grossly intact Neck: trachea midline Skin: warm, dry without signs of tenting; no cyanosis; no rashes, bruising, lesi ons, or erythema noted Lungs: no acute respiratory distress; symmetrical chest wall expansion MSK: left splint in place Neuro: anxious, pacing in room. Discharge Plan Discharge Items Patient Disposition: Transfer Behavioral Health Fac Reason For Visit: BIPOLAR Discharge Diagnosis: Fracture of 4th/5th left phalanx. Bipolar Disorder Condition on Discharge: Good Activity: Resume your previous activity Non-emergency contact: Primary Care Provider and Psychiatrist Call non-emergency contact if: you have any medication questions, your symptoms worsen and your pain is not controlled Follow-up/Referrals: PCP,NO [Primary Care Provider] - Diet: Regular Addtl Attending Provider Instructions: Richard Sanchez were recently hospitalized for hallucinations and left hand pain. You were found to have a fracture in your left hand. You are being transferred to the Behavioral health unit for further care regarding your mental health. Best of luck! Pending Studies at Discharge: No Stand-Alone Forms: My [facility] Medications and DC Order Prescriptions: No Action No Known Home Medications Admission Data Admit Date/Time: 03/02/25 14:55 Attending Provider: Jacob Blanco Admit Provider: Lloyd Birch Primary Care Provider: PCP,NO Other Providers: Kostas Gibson; Lloyd Birch; Katerina Monreal; Jesus Rowland; Lilian Fontaine; Karina Cason; Gerson Norman; Ba Gaytan; Kendrick [facility] Hospital Stay Data Consultations 03/02/25 14:42 ED Decision to Admit Stat 03/02/25 14:55 Consult Orthopedic Surgery Routine 03/02/25 17:39 Consult Psychiatry Routine Pending Results Patient Have Any Pending Studies at Discharge: No Discharge Instructions Given to Patient (Per Discharging Provider) Richard Sanchez were recently hospitalized for hallucinations and left hand pain. You were f ound to have a fracture in your left hand. You are being transferred to the Behavioral health unit for further care regarding your mental health. Best of luck! Total Time Total Time Spent Total Time Spent (In Minutes): 45 Total Time Includes: Examination of the Patient, Discharge Planning, Medication Reconciliation and Communication With Other Providers Coding Level of Care Code 31249 INP/OBS DISCH >30 MIN Diagnoses Thought disorder R41.89 Fracture of proximal phalanx of left little finger S62.617A Fracture of proximal phalanx of left ring finger S62.615A Bipolar disorder F31.9
--- NOTE | 2025-03-03 13:24 | Communication Note ---
Date of Service: March 03, 2025 By CMS guidelines, a determination that the admission or continued stay is not medically necessary has been made by a member of the UR committee and a physi olimpia for this hospital stay, therefore a Code 44 will be completed and the Inpatient admission will be changed to outpatient.
[2025-03-05 09:13] LABS: Cocaine, Urine 12500 ng/mL (<100)
== END 2025-03-03 16:29 | DRG 885 ==
LOC: ED 08:31 → 3E 14:55 → SUATTDRO 14:55 → 3E 17:19